=== PATIENT | male | born 1940 | race Caucasian/White ===

== ENCOUNTER 2019-11-23 05:26 | Emergency (ER) | payer MEDICARE, OTHER, SELFPAY ==
[2019-11-23 05:31] VITALS: BP 190/103; PULSE 75; RESP 28; TEMP 37; O2SAT 92; BMI 38.3
--- NOTE | 2019-11-23 05:32 | XR_ITS ---
WS: [id number] XR chest 1V portable [id number] REASON FOR EXAM: sob FINDINGS: The chest is unchanged compared to previous examination of 01/29/2019. There is been previous coronary artery bypass surgery. There are chronic interstitial changes in both lung bases. No acute pulmonary parenchymal pleural abn ormality is noted. Incidentally noted is narrowing of the humeral acromial space in the right shoulder which likely is i ndicative of rotator cuff pathology. XR/XR chest 1V portable [id number] IMPRESSION: No acute chest finding.
--- NOTE | 2019-11-23 05:33 | ECG_ITS ---
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 Measurements Intervals [place]bler Rate: 71 P: 56 NJ: 214 QRS: 61 QRSD: 162 T: 27 QT: 391 QTc: 427 Interpretive Statements SINUS RHYTHM WITH FIRST DEGREE AV BLOCK INDETERMINATE AXIS RIGHT BUNDLE BRANCH BLOCK [120+ ms QRS DURATION, UPRIGHT V1, 40+ ms S IN I/aVL/V4/V5/V6] Compared to ECG 05/11/2017 13:12:12 First degree AV block now present Indeterminate axis now present Right bundle-branch block now present Incomplete right bundle-branch block no longer present Electronically Signed On 11-23-2019 20:53:08 CDT by Lindy Tate M.D. [id number]
--- NOTE | 2019-11-23 05:38 | ED_ITS ---
Documented by User: Tyson Ortiz MD 11/24/19 11:06 HPI - SOB/Dyspnea General: Chief Complaint: Shortness of Breath/Dyspnea Stated Complaint: sob, trouble breathing Time Seen by Provider: 11/23/19 05:40 Source: patient Mode of arrival: ambulatory Limitations: no limitations History of Present Illness: HPI Narrative: 79-year-old male states he has a h istory of COPD states he had increased wheezing over the last week with getting much worse overnight. States that this morning he is having shortness of breath with wheezing. He was started albuterol she states had minimal improvement. He denies any fever. He has had a slight cough. He denies any chest pain. MD elicited complaint: shortness of breath Pertinent past history: COPD Onset (ago): day(s) Associated symptoms: Deny abdominal pain, chest pain, fever(s), nausea or vomiting Review of Systems Const: Denies: fever(s), chills, body aches or change in appetite Eyes: Denies: blurry vision or eye discomfort ENMT: Denies: throat pain or dental pain Card: Denies: chest pain Resp: Reports: dyspnea and wheezing GI: Denies: abdominal pain, nausea, vomiting or diarrhea : Denies: dysuria Musc: Denies: neck pain or back pain Skin/Breast: Denies: rash Neuro: Denies: headache(s) Psych: Denies: depression Reece/Lymph: Denies: easy bruising All/Imm: Denies: urticaria PFSH ED PFSH: Medical History ASHD (arteriosclerotic heart disease) Patient is known to have coronary artery disease and coronary artery bypass surgery. Asthma Atrial fibrillation Patient is known to have easy bruising and bleeding. So he is not able to take the oral anticoagulation. He has been taking the aspirin. Carpal tunnel syndrome COPD (chronic obstructive pulmonary disease) Dermatitis Hyperlipidemia Hypertension Surgical History H/O hernia repair History of removal of cyst Hx of CABG Hx of tonsillectomy Family History Other CAD (coronary artery disease) Cancer Social History Smoking and tobacco status: never smoked Alcohol intake: never Physical Exam Const: COMMON NORMALS: no acute distress, patient oriented x3 and healthy appearing HENMT: COMMON NORMALS: normocephalic and atraumatic HEAD & SCALP: normocephalic and atraumatic Eye: COMMON NORMALS: Equal, round and reactive pupils present and EOMs intact bilaterally PUPIL: Yes Equal, round and reactive pupils present Neck/C-Spine: COMMON NORMALS: full ROM and supple Chest: COMMONS NORMALS: normal inspection of the chest and normal palpation of entire chest wall Resp: COMMON NORMALS: normal respiratory effort, No retractions and No use of accessory muscles AUSCULTATION: wheezes Cardio: COMMON NORMALS: regular rate, regular rhythm and No murmurs present (Cardio) RATE: regular rate RHYTHM: regular rhythm GI: COMMON NORMALS: Normal to inspection, nondistended, normoactive bowel sounds present, Soft to palpation, non-tender and no masses PALPATION: Yes Soft to palpation Extremity: COMMON NORMALS: normal to inspection and full ROM Neuro: COMMON NORMALS: patient oriented x3, moves all extremities and no focal motor deficits Psych: COMMON NORMALS: mental status grossly normal, Normal thought process present and cooperative THOUGHT PROCESS: Normal thought process present Skin: COMMON NORMALS: no rashes or lesions noted and no wounds GENERAL SKIN EXAM: no rashes or lesions noted Course Vital Signs: Vital signs: Vital Signs Temperature 98.6 F 11/23/19 05:31 Pulse Rate 67 11/23/19 06:48 Respiratory Rate 18 11/23/19 06:19 Blood Pressure 131/75 11/23/19 06:48 Pulse Oximetry 94 11/23/19 06:48 MDM - SOB/Dyspnea Lab Data: Labs: Lab Results 11/23/19 11/23/19 11/23/19 Range/Units 05:45 05:45 06:15 WBC 9.0 (4.0-10.0) 10^3/ uL RBC 4.63 (4.1-5.3) 10^6/u L Hgb 14.8 (11.7-16.6) g/dL Hct 44.1 (42.0-52.0) % MCV 95.2 H (80-94) fL MCH 32.0 (28.0-34.0) pg MCHC 33.6 (30.0-36.0) g/dL RDW 13.0 (12.1-15.1) % Plt Count 215 (130-400) 10^3/c mm MPV 9.8 (7.4-10.4) fL Neut % (Auto) 59.6 % Lymph % (Auto) 24.7 % Brooks % (Auto) 8.4 % Eos % (Auto) 6.4 % Baso % (Auto) 0.7 % Neut # (Auto) 5.38 (1.8-7.7) 10^3/u L Lymph # (Auto) 2.2 (0.8-4.8) 10^3/u L Brooks # (Auto) 0.8 (0.2-0.9) 10^3/u L Eos # (Auto) 0.6 (0.0-0.8) 10^3/u L Baso # (Auto) 0.1 (0.0-0.1) 10^3/u L Nucleated RBC % (a uto) 0 % Nucleated RBCs # 0.0 /100WBC Specimen Type [facility] Sample Site Radial, right ABG pH 7.42 (7.35-7.45) ABG pCO2 40.4 (35-45) mmHg ABG pO2 554.0 H (80.0-100.0) mmH g ABG HCO3 26.1 H (22-26) mmol/L ABG O2 Saturation 99.4 ABG Base Excess 1.5 (-2.0-2.0) mmol/ L Jony Test Pos A-a O2 Gradient 4.7 L (5-10) mmHg Hematocrit 44.4 (42-52) % Hgb O2 Saturation 99.1 (95-100) % Carboxyhemoglobin 0.5 (0.4-20.1) %THgb Methemoglobin < 0.0 L (0.4-1.5) % Total Hemoglobin 10.6 L (14-18) g/dL Ionized Calcium 1.2 (1.1-1.4) mmol/L O2 Delivery Device None Physical Security Engineer ID Anonymous Sodium 136 77.0 L (136-145) mmol/L Potassium 4.2 7.8 H (3.5-5.1) mmol/L Chloride 98 (98-107) mmol/L Carbon Dioxide 25 (22-29) mmol/L Anion Gap 17.2 (5-19) BUN 7 L (8-23) mg/dL Creatinine 0.9 (0.7-1.2) mg/dL GFR Calculation Not Reportable Glucose 132 H < 0.0 L (65-115) mg/dL Calculated Osmolal ity 282 L (285-295) mOsm/k g Calcium 9.9 (8.5-10.5) mg/dL Total Bilirubin 0.3 (0.15-1.2) mg/dL AST 25 (0-40) U/L ALT 19 (0-41) U/L Alkaline Phosphata se 140 H (40-130) IU/L NT-Pro-B Natriuret Pep 222 (0-450) pg/mL Total Protein 7.6 (6.6-8.7) g/dL Albumin 4.3 (3.5-5.2) g/dL Globulin 3.3 (1.3-4.6) g/dL Discharge Plan Discharge Patient Disposition: Home Clinical Impression: Acute exacerbation of chronic obstructive airways disease Condition: Stable Prescriptions: New Medrol (Vinay) 4 mg tablets,dose pack See Rx Instructions .ROUTE .COMPLEX Qty: 21 RF: 0 ipratropium-albuterol 0.5 mg-3 mg(2.5 mg base)/3 mL solution for nebulization 3 ml INHALATION Q6H Qty: 180 RF: 0 Held levalbuterol HCl 1.25 mg/3 mL solution for nebulization 1.25 mg INHALATION Q4H PRNRF: 0 Hold Instructions: Resume on 11/30/19. No Action Brovana 15 mcg/2 mL solution for nebulization 2 ml INHALATION BID RF: 0 budesonide 0.25 mg/2 mL suspension for nebulization 2 ml INHALATION BID RF: 0 levothyroxine 75 mcg tablet 75 mcg PO DAILY RF: 0 montelukast [Singulair] 10 mg tablet 10 mg PO DAILY RF: 0 alprazolam 0.5 mg tablet 1 mg PO DAILY RF: 0 multivitamin Tablet 1 tab PO DAILY RF: 0 saw palmetto fruit 450 mg capsule 450 mg PO BID RF: 0 aspirin 325 mg tablet,delayed release (DR/EC) 325 mg PO DAILY RF: 0 atorvastatin 40 mg tablet 40 mg PO DAILY RF: 0 loratadine 10 mg tablet 10 mg PO DAILY RF: 0 omeprazole 20 mg tablet,delayed release (DR/EC) 20 mg PO BID RF: 0 venlafaxine 150 mg tablet extended release 24hr 150 mg PO DAILY RF: 0 furosemide 40 mg tablet 40 mg PO DAILY RF: 0 metoprolol tartrate 50 mg tablet 50 mg PO BID Qty: 180 RF: 3 nitroglycerin [Nitrostat] 0.4 mg tablet, sublingual 0.4 mg SUBLINGUAL Q5M PRN (Reason: chest pain) Qty: 30 RF: 3 Discharge Orders: Discharge Order (Routine); Ordered 11/23/19 Ordered By: Maulik De Dios Referrals: Alix Romero MD [Primary Care Provider] - Discharge Diet: Usual diet Discharge Activity: Increase activity as tolerated Activity Restrictions/Additional Instructions: Follow up with your primary care doctor within the next week. Discharge Date/Time: 11/23/19 06:48 Sign Out Sign Out Data: Patient Sign Out occurred on 11/23/19 at 05:56. Patient's care was discussed, and care was transferred from to Maulik De Dios DO. Coding Level of Care Code ED Corporate Investigator for Chg Fwd Exam Comprehensive Documented by User: Maulik De Dios DO 11/23/19 07:36 HPI - SOB/Dyspnea General: Chief Complaint: Shortness of Breath/Dyspnea Stated Complaint: sob, trouble breathing Time Seen by Provider: 11/23/19 05:40 History of Present Illness: HPI Narrative: 79-year-old male presents emergency room with complaints of shortness of breath and cough. He has had some relief from his nebulizer she denies fever denies any diarrhea is not been contact with anyone with [place] that he is aware of. He maintains he is been self quarantining since the pandemic began. He denies any body aches or anosmia. MD elicited complaint: shortness of breath and cough Pertinent past history: COPD Onset (ago): day(s) Context: occurred during exertion Timing: intermittent Severity: moderate Exacerbating factors: exertion and coughing Relieving factors: rest and bronchodilators Known history of: COPD Associated symptoms: Deny abdominal pain, chest congestion, chest pain, cough, diaphoresis, dizziness, extremity pain, fever(s), hemoptysis, lightheadedness, myalgias, nausea, orthopnea, palpitations, paresthesias, polydipsia, polyuria, rash, sense of impending doom, syncope or vomiting Treatment prior to arrival: bronchodilator Review of Systems Const: Denies: fever(s) or diaphoresis ENMT: Denies: throat pain, ear or mastoid pain, nasal discharge or nasal congestion Card: Denies: chest pain, palpitations, lightheadedness, syncope or orthopnea Resp: Denies: hemoptysis or chest congestion GI: Denies: abdominal pain, nausea or vomiting : Denies: flank pain, dysuria, urinary frequency or urinary urgency Musc: Denies: extremity pain Skin/Breast: Denies: rash or pruritus Neuro: Denies: dizziness Endo: Denies: polyuria or polydipsia PFSH ED PFSH: Medical History ASHD (arteriosclerotic heart disease) Patient is known to have coronary artery disease and coronary artery bypass surgery. Asthma Atrial fibrillation Patient is known to have easy bruising and bleeding. So he is not able to take the oral anticoagulation. He has been taking the aspirin. Carpal tunnel syndrome COPD (chronic obstructive pulmonary disease) Dermatitis Hyperlipidemia Hypertension Surgical History H/O hernia repair History of removal of cyst Hx of CABG Hx of tonsillectomy Family History Other CAD (coronary artery disease) Cancer Social History Smoking and tobacco status: never smoked Alcohol intake: never Physical Exam Const: COMMON NORMALS: no acute distress GENERAL APPEARANCE: cooperative and comfortable ORIENTATION/CONSCIOUSNESS: Yes awake, Yes oriented to person, Yes oriented to place and Yes oriented to time HENMT: COMMON NORMALS: normocephalic, atraumatic and hearing grossly normal bilaterally HEAD & SCALP: normocephalic and atraumatic Neck/C-Spine: COMMON NORMALS: no JVD Resp: COMMON NORMALS: normal respiratory effort, No retractions, No use of accessory muscles and clear to auscultation bilaterally AUSCULTATION: clear to auscultation bilaterally Cardio: COMMON NORMALS: no JVD, regular rate, regular rhythm and No murmurs present (Cardio) RATE: regular rate RHYTHM: regular rhythm GI: COMMON NORMALS: Soft to palpation and No hepatosplenomegaly present AUSCULTATION: Yes normoactive bowel sounds PALPATION: Yes Soft to palpation, No Tenderness to palpation present (GI), No Guarding due to palpation present (GI) and Yes No hepatosplenomegaly present Extremity: COMMON NORMALS: normal to inspection, capillary refill normal, no clubbing, cyanosis or edema, no calf tenderness and no pedal edema Neuro: SENSORIUM/ORIENTATION: Yes oriented to person, Yes oriented to place and Yes oriented to time Skin: COMMON NORMALS: no rashes or lesions noted GENERAL SKIN EXAM: no rashes or lesions noted Course Vital Signs: Vital signs: Vital Signs Temperature 98.6 F 11/23/19 05:31 Pulse Rate 67 11/23/19 06:48 Respiratory Rate 18 11/23/19 06:19 Blood Pressure 131/75 11/23/19 06:48 Pulse Oximetry 94 11/23/19 06:48 MDM - SOB/Dyspnea MDM Narrative: Medical decision making narrative: Patient has improved significantly we will go ahead and discharge him home change him to the [facility] at home also add Medrol Dosepak. Did not start him on any antibiotics due to the normal chest x-ray if he has any worsening or change return to the emergency room strongly encouraged him to follow-up with his primary care doctor within the next week. Lab Data: Labs: Lab Results 11/23/19 11/23/19 11/23/19 Range/Units 05:45 05:45 06:15 WBC 9.0 (4.0-10.0) 10^3/ uL RBC 4.63 (4.1-5.3) 10^6/u L Hgb 14.8 (11.7-16.6) g/dL Hct 44.1 (42.0-52.0) % MCV 95.2 H (80-94) fL MCH 32.0 (28.0-34.0) pg MCHC 33.6 (30.0-36.0) g/dL RDW 13.0 (12.1-15.1) % Plt Count 215 (130-400) 10^3/c mm MPV 9.8 (7.4-10.4) fL Neut % (Auto) 59.6 % Lymph % (Auto) 24.7 % Brooks % (Auto) 8.4 % Eos % (Auto) 6.4 % Baso % (Auto) 0.7 % Neut # (Auto) 5.38 (1.8-7.7) 10^3/u L Lymph # (Auto) 2.2 (0.8-4.8) 10^3/u L Brooks # (Auto) 0.8 (0.2-0.9) 10^3/u L Eos # (Auto) 0.6 (0.0-0.8) 10^3/u L Baso # (Auto) 0.1 (0.0-0.1) 10^3/u L Nucleated RBC % (a uto) 0 % Nucleated RBCs # 0.0 /100WBC Specimen Type [facility] Sample Site Radial, right ABG pH 7.42 (7.35-7.45) ABG pCO2 40.4 (35-45) mmHg ABG pO2 554.0 H (80.0-100.0) mmH g ABG HCO3 26.1 H (22-26) mmol/L ABG O2 Saturation 99.4 ABG Base Excess 1.5 (-2.0-2.0) mmol/ L Jony Test Pos A-a O2 Gradient 4.7 L (5-10) mmHg Hematocrit 44.4 (42-52) % Hgb O2 Saturation 99.1 (95-100) % Carboxyhemoglobin 0.5 (0.4-20.1) %THgb Methemoglobin < 0.0 L (0.4-1.5) % Total Hemoglobin 10.6 L (14-18) g/dL Ionized Calcium 1.2 (1.1-1.4) mmol/L O2 Delivery Device None Physical Security Engineer ID Anonymous Sodium 136 77.0 L (136-145) mmol/L Potassium 4.2 7.8 H (3.5-5.1) mmol/L Chloride 98 (98-107) mmol/L Carbon Dioxide 25 (22-29) mmol/L Anion Gap 17.2 (5-19) BUN 7 L (8-23) mg/dL Creatinine 0.9 (0.7-1.2) mg/dL GFR Calculation Not Reportable Glucose 132 H < 0.0 L (65-115) mg/dL Calculated Osmolal ity 282 L (285-295) mOsm/k g Calcium 9.9 (8.5-10.5) mg/dL Total Bilirubin 0.3 (0.15-1.2) mg/dL AST 25 (0-40) U/L ALT 19 (0-41) U/L Alkaline Phosphata se 140 H (40-130) IU/L NT-Pro-B Natriuret Pep 222 (0-450) pg/mL Total Protein 7.6 (6.6-8.7) g/dL Albumin 4.3 (3.5-5.2) g/dL Globulin 3.3 (1.3-4.6) g/dL Discharge Plan Discharge Patient Disposition: Home Clinical Impression: Acute exacerbation of chronic obstructive airways disease Condition: Stable Prescriptions: New Medrol (Vinay) 4 mg tablets,dose pack See Rx Instructions .ROUTE .COMPLEX Qty: 21 RF: 0 ipratropium-albuterol 0.5 mg-3 mg(2.5 mg base)/3 mL solution for nebulization 3 ml INHALATION Q6H Qty: 180 RF: 0 Held levalbuterol HCl 1.25 mg/3 mL solution for nebulization 1.25 mg INHALATION Q4H PRNRF: 0 Hold Instructions: Resume on 11/30/19. No Action Brovana 15 mcg/2 mL solution for nebulization 2 ml INHALATION BID RF: 0 budesonide 0.25 mg/2 mL suspension for nebulization 2 ml INHALATION BID RF: 0 levothyroxine 75 mcg tablet 75 mcg PO DAILY RF: 0 montelukast [Singulair] 10 mg tablet 10 mg PO DAILY RF: 0 alprazolam 0.5 mg tablet 1 mg PO DAILY RF: 0 multivitamin Tablet 1 tab PO DAILY RF: 0 saw palmetto fruit 450 mg capsule 450 mg PO BID RF: 0 aspirin 325 mg tablet,delayed release (DR/EC) 325 mg PO DAILY RF: 0 atorvastatin 40 mg tablet 40 mg PO DAILY RF: 0 loratadine 10 mg tablet 10 mg PO DAILY RF: 0 omeprazole 20 mg tablet,delayed release (DR/EC) 20 mg PO BID RF: 0 venlafaxine 150 mg tablet extended release 24hr 150 mg PO DAILY RF: 0 furosemide 40 mg tablet 40 mg PO DAILY RF: 0 metoprolol tartrate 50 mg tablet 50 mg PO BID Qty: 180 RF: 3 nitroglycerin [Nitrostat] 0.4 mg tablet, sublingual 0.4 mg SUBLINGUAL Q5M PRN (Reason: chest pain) Qty: 30 RF: 3 Discharge Orders: Discharge Order (Routine); Ordered 11/23/19 Ordered By: Maulik De Dios Referrals: Alix Romero MD [Primary Care Provider] - Discharge Diet: Usual diet Discharge Activity: Increase activity as tolerated Activity Restrictions/Additional Instructions: Follow up with your primary care doctor within the next week. Discharge Date/Time: 11/23/19 06:48 Sign Out Sign Out Data: Patient Sign Out occurred on 11/23/19 at 05:56. Patient's care was discussed, and care was transferred from to Maulik De Dios DO. Coding Level of Care Code ED Corporate Investigator for Alfredo Fwd Exam Comprehensive
[2019-11-23 05:43] VITALS: BP 156/82; PULSE 71; RESP 18; O2SAT 95
[2019-11-23 05:49] LABS: Basophils # 0.1 10^3/uL (0.0-0.1); Basophils % 0.7 %; Eosinophils # 0.6 10^3/uL (0.0-0.8); Eosinophils % 6.4 %; Hematocrit 44.1 % (42.0-52.0); Hemoglobin 14.8 g/dL (11.7-16.6); Lymphocytes # 2.2 10^3/uL (0.8-4.8); Lymphocytes % 24.7 %; Mean Corpuscular HGB Conc 33.6 g/dL (30.0-36.0); Mean Corpuscular Volume 95.2 fL (80-94); Mean Platelet Volume 9.8 fL (7.4-10.4); Monocytes # 0.8 10^3/uL (0.2-0.9); Monocytes % 8.4 %; Neutrophils # 5.38 10^3/uL (1.8-7.7); Neutrophils % 59.6 %; Nucleated Red Blood Cells % 0 %; Platelet Count 215 10^3/cmm (130-400); Red Blood Count 4.63 10^6/uL (4.1-5.3)
[2019-11-23] MEDS: ipratropium-albuterol 3 mL Neb INHALATION (05:52)
[2019-11-23 05:53] VITALS: PULSE 72; RESP 18; O2SAT 93
[2019-11-23 05:57] VITALS: PULSE 71
[2019-11-23 06:13] LABS: Alanine Aminotransferase 19 U/L (0-41); Albumin Level 4.3 g/dL (3.5-5.2); Alkaline Phosphatase 140 IU/L (40-130); Anion Gap 17.2 (5-19); Aspartate Amino Transferase 25 U/L (0-40); Blood Urea Nitrogen 7 mg/dL (8-23); Calcium 9.9 mg/dL (8.5-10.5); Carbon Dioxide 25 mmol/L (22-29); Chloride 98 mmol/L (98-107); Globulin 3.3 g/dL (1.3-4.6); Glucose 132 mg/dL (65-115); NT Pro B Type Natriuretic Pept 222 pg/mL (0-450); Osmolality Calculated 282 mOsm/kg (285-295); Potassium 4.2 mmol/L (3.5-5.1); Sodium 136 mmol/L (136-145); Total Bilirubin 0.3 mg/dL (0.15-1.2); Total Protein 7.6 g/dL (6.6-8.7)
[2019-11-23 06:19] VITALS: BP 134/76; PULSE 68; RESP 18; O2SAT 92
[2019-11-23 06:24] LABS: ABG PCO2 40.4 mmHg (35-45); ABG PH Result 7.42 (7.35-7.45); Alveolar-Arterial Oxygen Gradi 4.7 mmHg (5-10); Arterial Blood Gas Hematocrit 44.4 % (42-52); Base Excess ABG 1.5 mmol/L (-2.0-2.0); Blood Gas Allen Test Pos; Blood Gas Sample Site Radial, right; HCO3 ABG 26.1 mmol/L (22-26); Ionized Calcium Level - ABG 1.2 mmol/L (1.1-1.4)
[2019-11-23 06:48] VITALS: BP 131/75; PULSE 67; O2SAT 94
[2019-11-23 13:53] LABS: Blood Gas Operator Identificat Anonymous; Blood Gas Sample Type CalVer; HGB O2 Sat 99.1 % (95-100); Methemoglobin < 0.0 % (0.4-1.5); Oxygen Saturation ABG 99.4; Potassium Level - ABG 7.8 mmol/L (3.5-5.0); Total Hemoglobin 10.6 g/dL (14-18)
[2019-11-23 13:55] LABS: Glucose Level-ABG < 0.0 mg/dL (70-115)
[2019-11-23 14:04] LABS: Carboxyhemoglobin 0.5 %THgb (0.4-20.1)
== END 2019-11-23 06:48 | disposition home or self-care (01) ==
PROVIDERS: Emergency Medicine; Emergency Provider Family Medicine; PCP Family Medicine
DX: J44.1 Chronic obstructive pulmonary disease with (acute) exacerbation (principal); Z79.82 Long term (current) use of aspirin; I48.91 Unspecified atrial fibrillation; E78.5 Hyperlipidemia, unspecified; I10 Essential (primary) hypertension; Z95.1 Presence of aortocoronary bypass graft
CPT/HCPCS: 12345; 36600; 71045; 80051; 80053; 82810; 83880; 83986; 85025; 93005; 94640; 96374; 99283; 99284; J2930; J7611

== ENCOUNTER 2019-12-13 14:33 | Emergency (ER) | payer MEDICARE, OTHER, SELFPAY ==
[2019-12-13] VITALS (12 sets, daily range): BP systolic 130–207; BP diastolic 59–104; PULSE 86–101; RESP 19–25; TEMP 36.8; O2SAT 87–99; BMI 38.3
--- NOTE | 2019-12-13 14:49 | XR_ITS ---
WS: [id number] Exam: XR chest 1V portable [id number] Date/Time of Exam: 12/13/2019 3:20 PM Reason For Exam: dyspnea/cough Findings: Comparison 11/23/2019. The lungs are clear and fully expanded. Chronic interstitial changes. Normal cardiomediastinal struct ures. Signs of median sternotomy. High riding right humeral head may indicate long-standing tear of t he rotator cuff. XR/XR chest 1V portable [id number] IMPRESSION: 1. Chronic pulmonary changes. No acute process identified.
[2019-12-13 14:55] LABS: ABG PCO2 43.8 mmHg (35-45); ABG PH Result 7.38 (7.35-7.45); Arterial Blood Gas Hematocrit 46.7 % (42-52); Base Excess ABG 0.1 mmol/L (-2.0-2.0); Blood Gas Allen Test Pos; Blood Gas Operator Identificat GD; Blood Gas Sample Site Radial, left; Blood Gas Sample Type Arterial; HCO3 ABG 25.7 mmol/L (22-26); Oxygen Device NC; PO2 ABG 78.9 mmHg (80.0-100.0)
[2019-12-13 14:57] LABS: Basophils % 0.5 %; Eosinophils # 0.8 10^3/uL (0.0-0.8); Eosinophils % 9.6 %; Hematocrit 44.4 % (42.0-52.0); Lymphocytes # 2.1 10^3/uL (0.8-4.8); Lymphocytes % 25.9 %; Mean Corpuscular HGB Conc 33.8 g/dL (30.0-36.0); Mean Corpuscular Hemoglobin 32.2 pg (28.0-34.0); Mean Corpuscular Volume 95.3 fL (80-94); Mean Platelet Volume 10.6 fL (7.4-10.4); Monocytes # 0.7 10^3/uL (0.2-0.9); Monocytes % 8.4 %; Neutrophils % 55.5 %; Nucleated Red Blood Cells % 0 %; Platelet Count 207 10^3/cmm (130-400); Red Blood Count 4.66 10^6/uL (4.1-5.3); Red Cell Distribution Width 12.9 % (12.1-15.1); White Blood Count 8.1 10^3/uL (4.0-10.0)
--- NOTE | 2019-12-13 15:03 | ED_ITS ---
HPI - SOB/Dyspnea General: Chief Complaint: Shortness of Breath/Dyspnea Stated Complaint: RESP DISTRESS, COPD Time Seen by Provider: 12/13/19 14:38 History of Present Illness: HPI Narrative: 79-year-old male presents emergency room via EMS complaining of severe shortness of breath and wheezing. He has had this for the last several days progressively worsening. He denies any fever sweats chills nausea vomiting or diarrhea he is not had any myalgias or flulike symptoms. He ran out of his bronchodilators several days ago. In route he was placed on BiPAP for comfort and also given Solu-Medrol. On arrival here on 2 to 3 L per nasal cannula he is able to maintain sats in the upper 90s. MD elicited complaint: shortness of breath and cough Pertinent past history: asthma Onset (ago): hour(s) Severity: moderate Exacerbating factors: exertion and coughing Relieving factors: oxygen and other (cpap) Associated symptoms: Reports chest congestion and cough; Deny abdominal pain, chest pain, diaphoresis, dizziness, extremity pain, fever(s), hemoptysis, lightheadedness, myalgias, nausea, orthopnea, palpitations, paresthesias, polydipsia, polyuria, rash, sense of impending doom, syncope or vomiting Treatment prior to arrival: oxygen and other (BiPAP) Review of Systems Const: Denies: fever(s) or diaphoresis ENMT: Denies: throat pain, ear or mastoid pain, nasal discharge or nasal congestion Card: Denies: chest pain, palpitations, lightheadedness, syncope or orthopnea Resp: Reports: chest congestion; Denies: hemoptysis GI: Denies: abdominal pain, nausea or vomiting : Denies: flank pain, dysuria, urinary frequency or urinary urgency Musc: Denies: extremity pain Skin/Breast: Denies: rash or pruritus Neuro: Denies: dizziness Endo: Denies: polyuria or polydipsia PFSH ED PFSH: Medical History ASHD (arteriosclerotic heart disease) Patient is known to have coronary artery disease and coronary artery bypass surgery. Asthma Atrial fibrillation Patient is known to have easy bruising and bleeding. So he is not able to take the oral anticoagulation. He has been taking the aspirin. Carpal tunnel syndrome COPD (chronic obstructive pulmonary disease) Dermatitis Hyperlipidemia Hypertension Surgical History H/O hernia repair History of removal of cyst Hx of CABG Hx of tonsillectomy Family History Other CAD (coronary artery disease) Cancer Social History Smoking and tobacco status: never smoked Alcohol intake: never Physical Exam Const: COMMON NORMALS: no acute distress GENERAL APPEARANCE: cooperative and comfortable ORIENTATION/CONSCIOUSNESS: Yes awake, Yes oriented to person, Yes oriented to place and Yes oriented to time HENMT: COMMON NORMALS: normocephalic, atraumatic and hearing grossly normal bilaterally HEAD & SCALP: normocephalic and atraumatic Eye: COMMON NORMALS: Equal, round and reactive pupils present, EOMs intact bilaterally, conjunctivae normal and no scleral icterus CONJUNCTIVA: Yes conjunctivae normal PUPIL: Yes Equal, round and reactive pupils present Neck/C-Spine: COMMON NORMALS: no JVD Resp: AUSCULTATION: wheezes Cardio: COMMON NORMALS: no JVD, regular rate, regular rhythm and No murmurs present (Cardio) RATE: regular rate RHYTHM: regular rhythm GI: COMMON NORMALS: Soft to palpation and No hepatosplenomegaly present AUSCULTATION: Yes normoactive bowel sounds PALPATION: Yes Soft to palpation, No Tenderness to palpation present (GI), No Guarding due to palpation present (GI) and Yes No hepatosplenomegaly present Extremity: COMMON NORMALS: normal to inspection, capillary refill normal, no clubbing, cyanosis or edema, no calf tenderness and no pedal edema Neuro: SENSORIUM/ORIENTATION: Yes oriented to person, Yes oriented to place and Yes oriented to time Skin: COMMON NORMALS: no rashes or lesions noted GENERAL SKIN EXAM: no rashes or lesions noted Course Vital Signs: Vital signs: Vital Signs Temperature 98.3 F 12/13/19 14:37 Pulse Rate 101 H 12/13/19 20:53 Respiratory Rate 19 H 12/13/19 19:27 Blood Pressure 167/88 12/13/19 20:53 Pulse Oximetry 95 12/13/19 20:53 MDM - SOB/Dyspnea MDM Narrative: Medical decision making narrative: Patient improved with albuterol. We will put him on a Medrol Dosepak albuterol screen for home O2 follow-up tomorrow with his primary care doctor Lab Data: Labs: Lab Results 12/13/19 12/13/19 12/13/19 Range/Units 14:25 14:25 14:25 WBC 8.1 (4.0-10.0) 10^3/ uL RBC 4.66 (4.1-5.3) 10^6/u L Hgb 15.0 (11.7-16.6) g/dL Hct 44.4 (42.0-52.0) % MCV 95.3 H (80-94) fL MCH 32.2 (28.0-34.0) pg MCHC 33.8 (30.0-36.0) g/dL RDW 12.9 (12.1-15.1) % Plt Count 207 (130-400) 10^3/c mm MPV 10.6 H (7.4-10.4) fL Neut % (Auto) 55.5 % Lymph % (Auto) 25.9 % [place] % (Auto) 8.4 % Eos % (Auto) 9.6 % Baso % (Auto) 0.5 % Neut # (Auto) 4.50 (1.8-7.7) 10^3/u L Lymph # (Auto) 2.1 (0.8-4.8) 10^3/u L [place] # (Auto) 0.7 (0.2-0.9) 10^3/u L Eos # (Auto) 0.8 (0.0-0.8) 10^3/u L Baso # (Auto) 0.0 (0.0-0.1) 10^3/u L Nucleated RBC % (a uto) 0 % Nucleated RBCs # 0.0 /100WBC Fibrinogen 616 H (174-498) mg/dL D-Dimer 0.37 (0-0.59) ug/mIFE U Specimen Type Sample Site ABG pH (7.35-7.45) ABG pCO2 (35-45) mmHg ABG pO2 (80.0-100.0) mmH g ABG HCO3 (22-26) mmol/L ABG Base Excess (-2.0-2.0) mmol/ L Jony Test Hematocrit (42-52) % O2 Delivery Device O2 Liters/Min % FiO2 % Director Of Strategic Alliances ID Sodium 136 (136-145) mmol/L Potassium 4.2 (3.5-5.1) mmol/L Chloride 97 L (98-107) mmol/L Carbon Dioxide 27 (22-29) mmol/L Anion Gap 16.2 (5-19) BUN 6 L (8-23) mg/dL Creatinine 0.8 (0.7-1.2) mg/dL GFR Calculation Not Reportable Glucose 101 (65-115) mg/dL Calculated Osmolal ity 280 L (285-295) mOsm/k g Calcium 9.3 (8.5-10.5) mg/dL Ferritin 155 (30-400) ng/mL Total Bilirubin 0.3 (0.15-1.2) mg/dL AST 23 (0-40) U/L ALT 23 (0-41) U/L Alkaline Phosphata se 136 H (40-130) IU/L C-Reactive Protein 6.9 H (0.0-4.9) mg/L Total Protein 7.1 (6.6-8.7) g/dL Albumin 4.4 (3.5-5.2) g/dL Globulin 2.7 (1.3-4.6) g/dL Procalcitonin 0.05 (0-0.5) ng/mL Urine Color (Yellow) Urine Appearance (CLEAR) Urine pH (5-7) Ur Specific Gravit y (1.005-1.030) Urine Protein (Negative) Urine Glucose (UA) (Normal) Urine Ketones (Negative) Urine Blood (Negative) Urine Nitrate (Negative) Urine Bilirubin (Negative) Urine Urobilinogen (Negative) mg/dL Ur Leukocyte Cherry ase (Negative) SARS-CoV-2 Ag (Rap id) (Negative) 12/13/19 12/13/19 12/13/19 Range/Units 14:35 15:24 15:35 WBC (4.0-10.0) 10^3/ uL RBC (4.1-5.3) 10^6/u L Hgb (11.7-16.6) g/dL Hct (42.0-52.0) % MCV (80-94) fL MCH (28.0-34.0) pg MCHC (30.0-36.0) g/dL RDW (12.1-15.1) % Plt Count (130-400) 10^3/c mm MPV (7.4-10.4) fL Neut % (Auto) % Lymph % (Auto) % [place] % (Auto) % Eos % (Auto) % Baso % (Auto) % Neut # (Auto) (1.8-7.7) 10^3/u L Lymph # (Auto) (0.8-4.8) 10^3/u L [place] # (Auto) (0.2-0.9) 10^3/u L Eos # (Auto) (0.0-0.8) 10^3/u L Baso # (Auto) (0.0-0.1) 10^3/u L Nucleated RBC % (a uto) % Nucleated RBCs # /100WBC Fibrinogen (174-498) mg/dL D-Dimer (0-0.59) ug/mIFE U Specimen Type Arterial Sample Site Radial, left ABG pH 7.38 (7.35-7.45) ABG pCO2 43.8 (35-45) mmHg ABG pO2 78.9 L (80.0-100.0) mmH g ABG HCO3 25.7 (22-26) mmol/L ABG Base Excess 0.1 (-2.0-2.0) mmol/ L Jony Test Pos Hematocrit 46.7 (42-52) % O2 Delivery Device Nc O2 Liters/Min 2.0 % FiO2 28.0 % Director Of Strategic Alliances ID Gd Sodium (136-145) mmol/L Potassium (3.5-5.1) mmol/L Chloride (98-107) mmol/L Carbon Dioxide (22-29) mmol/L Anion Gap (5-19) BUN (8-23) mg/dL Creatinine (0.7-1.2) mg/dL GFR Calculation Glucose (65-115) mg/dL Calculated Osmolal ity (285-295) mOsm/k g Calcium (8.5-10.5) mg/dL Ferritin (30-400) ng/mL Total Bilirubin (0.15-1.2) mg/dL AST (0-40) U/L ALT (0-41) U/L Alkaline Phosphata se (40-130) IU/L C-Reactive Protein (0.0-4.9) mg/L Total Protein (6.6-8.7) g/dL Albumin (3.5-5.2) g/dL Globulin (1.3-4.6) g/dL Procalcitonin (0-0.5) ng/mL Urine Color Yellow (Yellow) Urine Appearance Clear (CLEAR) Urine pH 6 (5-7) Ur Specific Gravit y 1.015 (1.005-1.030) Urine Protein Neg (Negative) Urine Glucose (UA) Norm (Normal) Urine Ketones Negative (Negative) Urine Blood Neg (Negative) Urine Nitrate Negative (Negative) Urine Bilirubin Neg (Negative) Urine Urobilinogen Norm (Negative) mg/dL Ur Leukocyte [place] ase Negative (Negative) SARS-CoV-2 Ag (Rap id) Negative (Negative) Discharge Plan Discharge Patient Disposition: Home Clinical Impression: Acute exacerbation of chronic obstructive airways disease Condition: Stable Prescriptions: New Medrol (Vinay) 4 mg tablets,dose pack See Rx Instructions .ROUTE .COMPLEX Qty: 21 RF: 0 albuterol sulfate 90 mcg/actuation HFA aerosol inhaler 2 inh INHALATION Q4H PRN (Reason: shortness of breath or wheezing) Qty: 18 RF: 0 albuterol sulfate 2.5 mg /3 mL (0.083 %) solution for nebulization 2.5 mg INHALATION Q6H PRN (Reason: shortness of breath or wheezing) Qty: 90 RF: 0 No Action Brovana 15 mcg/2 mL solution for nebulization 2 ml INHALATION BID RF: 0 budesonide 0.25 mg/2 mL suspension for nebulization 2 ml INHALATION BID RF: 0 levothyroxine 75 mcg tablet 75 mcg PO DAILY RF: 0 montelukast [Singulair] 10 mg tablet 10 mg PO DAILY RF: 0 alprazolam 0.5 mg tablet 0.5 mg PO BID PRN (Reason: unknown) RF: 0 multivitamin Tablet 1 tab PO DAILY RF: 0 saw palmetto fruit 450 mg capsule 450 mg PO BID RF: 0 aspirin 325 mg tablet,delayed release (DR/EC) 325 mg PO DAILY RF: 0 atorvastatin 40 mg tablet 40 mg PO DAILY RF: 0 loratadine 10 mg tablet 10 mg PO DAILY RF: 0 omeprazole 20 mg tablet,delayed release (DR/EC) 40 mg PO DAILY RF: 0 venlafaxine 150 mg tablet extended release 24hr 150 mg PO DAILY RF: 0 furosemide 40 mg tablet 40 mg PO DAILY RF: 0 metoprolol tartrate 50 mg tablet 50 mg PO BID Qty: 180 RF: 3 nitroglycerin [Nitrostat] 0.4 mg tablet, sublingual 0.4 mg SUBLINGUAL Q5M PRN (Reason: chest pain) Qty: 30 RF: 3 ipratropium-albuterol 0.5 mg-3 mg(2.5 mg base)/3 mL solution for nebulization 3 ml INHALATION Q6H Qty: 180 RF: 0 venlafaxine 75 mg capsule,extended release 24hr 75 mg PO DAILY RF: 0 Discharge Orders: Discharge Order (Routine); Ordered 12/13/19 Ordered By: Maulik De Dios Referrals: Alix Romero MD [Primary Care Provider] - Discharge Date/Time: 12/13/19 20:55 Coding Level of Care Code ED Public Welfare Worker for Chg Fwd Exam Comprehensive
[2019-12-13] MEDS: terbutaline 1 mg/mL INJ 0.25 MG SUBCUT (15:16)
[2019-12-13] MEDS: LORazepam 2 mg/mL INJ 1 mL IVP (15:16)
[2019-12-13 15:21] LABS: Procalcitonin 0.05 ng/mL (0-0.5)
[2019-12-13 15:25] LABS: D Dimer 0.37 ug/mIFEU (0-0.59); Fibrinogen 616 mg/dL (174-498)
[2019-12-13 15:34] LABS: Alanine Aminotransferase 23 U/L (0-41); Albumin Level 4.4 g/dL (3.5-5.2); Alkaline Phosphatase 136 IU/L (40-130); Aspartate Amino Transferase 23 U/L (0-40); Blood Urea Nitrogen 6 mg/dL (8-23); C Reactive Protein 6.9 mg/L (0.0-4.9); Calcium 9.3 mg/dL (8.5-10.5); Carbon Dioxide 27 mmol/L (22-29); Chloride 97 mmol/L (98-107); Ferritin 155 ng/mL (30-400); Globulin 2.7 g/dL (1.3-4.6); Glucose 101 mg/dL (65-115); Osmolality Calculated 280 mOsm/kg (285-295); Sodium 136 mmol/L (136-145); Total Bilirubin 0.3 mg/dL (0.15-1.2); Total Protein 7.1 g/dL (6.6-8.7)
[2019-12-13 15:37] LABS: Anion Gap 16.2 (5-19); Potassium 4.2 mmol/L (3.5-5.1)
--- NOTE | 2019-12-13 15:40 | PC.NURSE ---
PT WAS ON ROOM AIR AT 88%. PT PLACED BACK ON NC AT 1.5L
[2019-12-13 15:48] LABS: SARS Covid-2 Antigen Negative (Negative)
[2019-12-13 15:52] LABS: Add Urine Microscopic? NO
[2019-12-13 15:57] LABS: Bilirubin Urine Neg (Negative); Blood Urine Neg (Negative); Glucose Urine UA Norm (Normal); Ketones Urine Negative (Negative); Leukocyte Esterase Urine Negative (Negative); Nitrate Urine Negative (Negative); Protein Urine Neg (Negative); Specific Gravity, Urine 1.015 (1.005-1.030); Urine Appearance Clear (CLEAR); Urine Color Yellow (Yellow); Urobilinogen Urine Norm (Negative); pH Urine 6 (5-7)
[2019-12-13] MEDS: ipratropium-albuterol 3 mL Neb INHALATION ×2 (16:05→17:22)
--- NOTE | 2019-12-13 16:12 | PC.NURSE ---
pt off of droplet precautions
--- NOTE | 2019-12-13 18:10 | PC.NURSE ---
RT at bedside to complete home O2 evaluation.
--- NOTE | 2019-12-13 19:14 | PC.NURSE ---
patient requested [facility] provide oxygen
--- NOTE | 2019-12-13 21:17 | PC.SOCIAL ---
Patient qualified for home oxygen. He chose [facility] as he already gets CPAP supplies from there. Called [facility] and spoke to Jasmyne, faxed information, she will have short haul driver over as soon as possible. Choice sheet signed and in chart, his son is here to provide ride home. Information faxed to Dr. Alix Romero's office as per Jasmyne they will need to get orders from her since she is the PCP.
== END 2019-12-13 20:55 | disposition home or self-care (01) ==
PROVIDERS: Emergency Provider Family Medicine; PCP Family Medicine
DX: J44.1 Chronic obstructive pulmonary disease with (acute) exacerbation (principal); Z79.82 Long term (current) use of aspirin; I48.91 Unspecified atrial fibrillation; E78.5 Hyperlipidemia, unspecified; I10 Essential (primary) hypertension; Z95.1 Presence of aortocoronary bypass graft
CPT/HCPCS: 12345; 36600; 71045; 80053; 81003; 82728; 82803; 84145; 85025; 85378; 85384; 86140; 87426; 94640; 96372; 96374; 96375; 99283; 99284; J2060; J3105

== ENCOUNTER 2020-01-04 08:00 | Emergency (ER) | payer MEDICARE, OTHER, SELFPAY ==
[2020-01-04 08:01] VITALS: BP 167/87; PULSE 73; RESP 20; TEMP 36.9; O2SAT 98; BMI 38.3
[2020-01-04 08:13] VITALS: O2SAT 98
--- NOTE | 2020-01-04 08:26 | XR_ITS ---
WS: [id number] Exam: XR chest 1V portable [id number] Date/Time of Exam: 01/04/2020 8:26 AM Reason For Exam: dyspnea Comparison 12/13/2019. The lungs are fully expanded and clear. Normal heart size. The mediastinum and bony thorax are unrema rkable. Signs of previous CABG surgery. XR/XR chest 1V portable [id number] IMPRESSION: 1. No acute cardiopulmonary finding.
--- NOTE | 2020-01-04 08:26 | ECG_ITS ---
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 Measurements Intervals [place] Rate: 68 P: 74 AR: 206 QRS: 6 QRSD: 149 T: 69 QT: 385 QTc: 412 Interpretive Statements SINUS RHYTHM INDETERMINATE AXIS RIGHT BUNDLE BRANCH BLOCK [120+ ms QRS DURATION, UPRIGHT V1, 40+ ms S IN I/aVL/V4/V5/V6] Compared to ECG 11/23/2019 05:40:42 First degree AV block no longer present Electronically Signed On 01-04-2020 21:43:46 LABORATORY ASST by Harmony Guerin M.D. [id number]
--- NOTE | 2020-01-04 08:49 | ED_ITS ---
HPI - SOB/Dyspnea General: Chief Complaint: Shortness of Breath/Dyspnea Stated Complaint: DIFF BREATHING Time Seen by Provider: 01/04/20 08:01 History of Present Illness: HPI Narrative: 71-year-old male presents emergency room complaining of shortness of breath. He has a history of COPD. Pt was seen in the ER with exacebetation of COPD approximately 3 wks. He was on steriods but feels it has worsened since he ran out of the steriods. He was referred to a chief airline radio operator, hua to be seen this AM but was not able to get to his car due to dyspnea. MD elicited complaint: shortness of breath and cough Pertinent past history: COPD Onset (ago): hour(s) Context: occurred during exertion Timing: intermittent Severity: mild Exacerbating factors: nothing Relieving factors: nothing Known history of: COPD Associated symptoms: Reports chest congestion and cough; Deny abdominal pain, chest pain, diaphoresis, dizziness, extremity pain, fever(s), hemoptysis, lightheadedness, myalgias, nausea, orthopnea, palpitations, paresthesias, polydipsia, polyuria, rash, sense of impending doom, syncope or vomiting Treatment prior to arrival: oxygen and bronchodilator Review of Systems Const: Denies: fever(s) or diaphoresis ENMT: Denies: throat pain, ear or mastoid pain, nasal discharge or nasal congestion Card: Denies: chest pain, palpitations, lightheadedness, syncope or orthopnea Resp: Reports: chest congestion; Denies: hemoptysis GI: Denies: abdominal pain or nausea : Denies: flank pain, dysuria, urinary frequency or urinary urgency Musc: Denies: extremity pain Skin/Breast: Denies: rash or pruritus Neuro: Denies: dizziness Endo: Denies: polydipsia PFSH ED PFSH: Medical History ASHD (arteriosclerotic heart disease) Patient is known to have coronary artery disease and coronary artery bypass surgery. Asthma Atrial fibrillation Patient is known to have easy bruising and bleeding. So he is not able to take the oral anticoagulation. He has been taking the aspirin. Carpal tunnel syndrome COPD (chronic obstructive pulmonary disease) Dermatitis Hyperlipidemia Hypertension Surgical History H/O hernia repair History of removal of cyst Hx of CABG Hx of tonsillectomy Family History Other CAD (coronary artery disease) Cancer Social History Smoking and tobacco status: never smoked Alcohol intake: never Physical Exam Const: COMMON NORMALS: no acute distress GENERAL APPEARANCE: cooperative and comfortable ORIENTATION/CONSCIOUSNESS: Yes awake, Yes oriented to person, Yes oriented to place and Yes oriented to time HENMT: COMMON NORMALS: normocephalic, atraumatic and hearing grossly normal bilaterally HEAD & SCALP: normocephalic and atraumatic Eye: COMMON NORMALS: Equal, round and reactive pupils present, EOMs intact bilaterally, conjunctivae normal and no scleral icterus CONJUNCTIVA: Yes conjunctivae normal PUPIL: Yes Equal, round and reactive pupils present Neck/C-Spine: COMMON NORMALS: full ROM, no lymphadenopathy, supple and no JVD Lymph: LYMPHATIC: no lymphadenopathy noted and no lymphedema noted Resp: AUSCULTATION: rhonchi and wheezes Cardio: COMMON NORMALS: no JVD, regular rate, regular rhythm and No murmurs present (Cardio) RATE: regular rate RHYTHM: regular rhythm GI: COMMON NORMALS: Soft to palpation and No hepatosplenomegaly present AUSCULTATION: Yes normoactive bowel sounds PALPATION: Yes Soft to palpation, No Tenderness to palpation present (GI), No Guarding due to palpation present (GI) and Yes No hepatosplenomegaly present Extremity: COMMON NORMALS: normal to inspection, capillary refill normal, no clubbing, cyanosis or edema, no calf tenderness and no pedal edema Neuro: SENSORIUM/ORIENTATION: Yes oriented to person, Yes oriented to place and Yes oriented to time Skin: COMMON NORMALS: no rashes or lesions noted GENERAL SKIN EXAM: no rashes or lesions noted Course Vital Signs: Vital signs: Vital Signs Temperature 98.4 F 01/04/20 08:01 Pulse Rate 78 01/04/20 10:40 Respiratory Rate 19 H 01/04/20 10:40 Blood Pressure 126/78 01/04/20 10:40 Pulse Oximetry 97 01/04/20 10:40 MDM - SOB/Dyspnea MDM Narrative: Medical decision making narrative: Is feeling better now on 2 L by nasal cannula. Respiratory therapy came by and did a blood gas and a home O2 eval he does require oxygen at 2 to 3 L/min. It has been ordered we will go ahead and discharge him home chest x-ray looked okay do not think he will benefit from further steroids antibiotics at this point. Follow-up with his primary care doctor and pulmonology as needed return if has worsening problems Lab Data: Labs: Lab Results 01/04/20 01/04/20 01/04/20 Range/Units 07:35 07:35 07:35 WBC 7.8 (4.0-10.0) 10^3/ uL RBC 4.68 (4.1-5.3) 10^6/u L Hgb 14.7 (11.7-16.6) g/dL Hct 44.5 (42.0-52.0) % MCV 95.1 H (80-94) fL MCH 31.4 (28.0-34.0) pg MCHC 33.0 (30.0-36.0) g/dL RDW 13.0 (12.1-15.1) % Plt Count 179 (130-400) 10^3/c mm MPV 10.0 (7.4-10.4) fL Neut % (Auto) 54.3 % Lymph % (Auto) 25.1 % [place] % (Auto) 8.0 % Eos % (Auto) 11.7 % Baso % (Auto) 0.8 % Neut # (Auto) 4.25 (1.8-7.7) 10^3/u L Lymph # (Auto) 2.0 (0.8-4.8) 10^3/u L [place] # (Auto) 0.6 (0.2-0.9) 10^3/u L Eos # (Auto) 0.9 H (0.0-0.8) 10^3/u L Baso # (Auto) 0.1 (0.0-0.1) 10^3/u L Nucleated RBC % (a uto) 0 % Nucleated RBCs # 0.0 /100WBC Specimen Type Sample Site ABG pH (7.35-7.45) ABG pCO2 (35-45) mmHg ABG pO2 (80.0-100.0) mmH g ABG HCO3 (22-26) mmol/L ABG O2 Saturation ABG Base Excess (-2.0-2.0) mmol/ L Jony Test A-a O2 Gradient (5-10) mmHg Hematocrit (42-52) % Hgb O2 Saturation (95-100) % Carboxyhemoglobin (0.4-20.1) %THgb Methemoglobin (0.4-1.5) % Total Hemoglobin (14-18) g/dL Ionized Calcium (1.1-1.4) mmol/L O2 Delivery Device Director Independent ID Sodium 137 (136-145) mmol/L Potassium 4.8 (3.5-5.1) mmol/L Chloride 97 L (98-107) mmol/L Carbon Dioxide 30 H (22-29) mmol/L Anion Gap 14.8 (5-19) BUN 7 L (8-23) mg/dL Creatinine 0.7 (0.7-1.2) mg/dL GFR Calculation Not Reportable Glucose 77 (65-115) mg/dL Calculated Osmolal ity 281 L (285-295) mOsm/k g Calcium 9.7 (8.5-10.5) mg/dL Total Bilirubin 0.4 (0.15-1.2) mg/dL AST 30 (0-40) U/L ALT 23 (0-41) U/L Alkaline Phosphata se 146 H (40-130) IU/L Troponin T Baselin e 35 H (0-15) ng/L Troponin T 120 Min [place] (0-15) ng/L Delta Troponin T (0-10) ABS# Total Protein 7.1 (6.6-8.7) g/dL Albumin 4.6 (3.5-5.2) g/dL Globulin 2.5 (1.3-4.6) g/dL 01/04/20 01/04/20 Range/Units 08:57 09:44 WBC (4.0-10.0) 10^3/ uL RBC (4.1-5.3) 10^6/u L Hgb (11.7-16.6) g/dL Hct (42.0-52.0) % MCV (80-94) fL MCH (28.0-34.0) pg MCHC (30.0-36.0) g/dL RDW (12.1-15.1) % Plt Count (130-400) 10^3/c mm MPV (7.4-10.4) fL Neut % (Auto) % Lymph % (Auto) % [place] % (Auto) % Eos % (Auto) % Baso % (Auto) % Neut # (Auto) (1.8-7.7) 10^3/u L Lymph # (Auto) (0.8-4.8) 10^3/u L [place] # (Auto) (0.2-0.9) 10^3/u L Eos # (Auto) (0.0-0.8) 10^3/u L Baso # (Auto) (0.0-0.1) 10^3/u L Nucleated RBC % (a uto) % Nucleated RBCs # /100WBC Specimen Type Arterial Sample Site Radial, right ABG pH 7.43 (7.35-7.45) ABG pCO2 42.2 (35-45) mmHg ABG pO2 59.7 L (80.0-100.0) mmH g ABG HCO3 28.0 H (22-26) mmol/L ABG O2 Saturation 92.3 ABG Base Excess 3.3 H (-2.0-2.0) mmol/ L Jony Test Pos A-a O2 Gradient 5.3 (5-10) mmHg Hematocrit 44.8 (42-52) % Hgb O2 Saturation 91.4 L (95-100) % Carboxyhemoglobin 0.7 (0.4-20.1) %THgb Methemoglobin 0.3 L (0.4-1.5) % Total Hemoglobin 14.6 (14-18) g/dL Ionized Calcium 1.2 (1.1-1.4) mmol/L O2 Delivery Device Room air Director Independent ID [place] Sodium 137.0 (136-145) mmol/L Potassium 4.2 (3.5-5.1) mmol/L Chloride (98-107) mmol/L Carbon Dioxide (22-29) mmol/L Anion Gap (5-19) BUN (8-23) mg/dL Creatinine (0.7-1.2) mg/dL GFR Calculation Glucose 103.0 (65-115) mg/dL Calculated Osmolal ity (285-295) mOsm/k g Calcium (8.5-10.5) mg/dL Total Bilirubin (0.15-1.2) mg/dL AST (0-40) U/L ALT (0-41) U/L Alkaline Phosphata se (40-130) IU/L Troponin T Baselin e (0-15) ng/L Troponin T 120 Min [place] 28.48 H (0-15) ng/L Delta Troponin T -6.52 L (0-10) ABS# Total Protein (6.6-8.7) g/dL Albumin (3.5-5.2) g/dL Globulin (1.3-4.6) g/dL Discharge Plan Discharge Patient Disposition: Home Clinical Impression: COPD (chronic obstructive pulmonary disease) Condition: Stable Prescriptions: No Action Brovana 15 mcg/2 mL solution for nebulization 2 ml INHALATION BID RF: 0 budesonide 0.25 mg/2 mL suspension for nebulization 2 ml INHALATION BID RF: 0 levothyroxine 75 mcg tablet 75 mcg PO DAILY RF: 0 montelukast [Singulair] 10 mg tablet 10 mg PO DAILY RF: 0 alprazolam 0.5 mg tablet 0.5 mg PO BID PRN (Reason: unknown) RF: 0 multivitamin Tablet 1 tab PO DAILY RF: 0 saw palmetto 450 mg capsule 450 mg PO BID RF: 0 aspirin 325 mg tablet,delayed release (DR/EC) 325 mg PO DAILY RF: 0 atorvastatin 40 mg tablet 40 mg PO DAILY RF: 0 loratadine 10 mg tablet 10 mg PO DAILY RF: 0 omeprazole 20 mg tablet,delayed release (DR/EC) 40 mg PO DAILY RF: 0 venlafaxine 150 mg tablet extended release 24hr 150 mg PO DAILY RF: 0 furosemide 40 mg tablet 40 mg PO DAILY RF: 0 metoprolol tartrate 50 mg tablet 50 mg PO BID Qty: 180 RF: 3 nitroglycerin [Nitrostat] 0.4 mg tablet, sublingual 0.4 mg SUBLINGUAL Q5M PRN (Reason: chest pain) Qty: 30 RF: 3 ipratropium-albuterol 0.5 mg-3 mg(2.5 mg base)/3 mL solution for nebulization 3 ml INHALATION Q6H Qty: 180 RF: 0 venlafaxine 75 mg capsule,extended release 24hr 75 mg PO DAILY RF: 0 albuterol sulfate 90 mcg/actuation HFA aerosol inhaler 2 inh INHALATION Q4H PRN (Reason: shortness of breath or wheezing) Qty: 18 RF: 0 albuterol sulfate 2.5 mg /3 mL (0.083 %) solution for nebulization 2.5 mg INHALATION Q6H PRN (Reason: shortness of breath or wheezing) Qty: 90 R F: 0 Discharge Orders: Discharge Order (Routine); Ordered 01/04/20 Ordered By: Maulik De Dios Other Ambulatory Orders: DME: Oxygen (Order) Location: None Selected Ordered By: Maulik De Dios Referrals: Alix Romero MD [Primary Care Provider] - Discharge Diet: Usual diet Discharge Activity: Resume usual activity Activity Restrictions/Additional Instructions: Wear oxygen continuously at 2 L/min follow-up with pulmonology and primary care as planned continue to use albuterol as needed as well. Coding Level of Care Code ED Freelance Designer for Antg Fwd Exam Comprehensive
[2020-01-04 08:50] LABS: Basophils # 0.1 10^3/uL (0.0-0.1); Basophils % 0.8 %; Eosinophils # 0.9 10^3/uL (0.0-0.8); Eosinophils % 11.7 %; Hematocrit 44.5 % (42.0-52.0); Hemoglobin 14.7 g/dL (11.7-16.6); Lymphocytes % 25.1 %; Mean Corpuscular Hemoglobin 31.4 pg (28.0-34.0); Mean Corpuscular Volume 95.1 fL (80-94); Monocytes # 0.6 10^3/uL (0.2-0.9); Neutrophils # 4.25 10^3/uL (1.8-7.7); Neutrophils % 54.3 %; Nucleated Red Blood Cells % 0 %; Platelet Count 179 10^3/cmm (130-400); Red Blood Count 4.68 10^6/uL (4.1-5.3); White Blood Count 7.8 10^3/uL (4.0-10.0)
[2020-01-04 09:08] LABS: ABG PCO2 42.2 mmHg (35-45); ABG PH Result 7.43 (7.35-7.45); Alveolar-Arterial Oxygen Gradi 5.3 mmHg (5-10); Arterial Blood Gas Hematocrit 44.8 % (42-52); Base Excess ABG 3.3 mmol/L (-2.0-2.0); Blood Gas Allen Test Pos; Blood Gas Operator Identificat BROMA; Blood Gas Sample Site Radial, right; Blood Gas Sample Type Arterial; Carboxyhemoglobin 0.7 %THgb (0.4-20.1); HGB O2 Sat 91.4 % (95-100); Ionized Calcium Level - ABG 1.2 mmol/L (1.1-1.4); Methemoglobin 0.3 % (0.4-1.5); Oxygen Device ROOM AIR; Oxygen Saturation ABG 92.3; PO2 ABG 59.7 mmHg (80.0-100.0); Potassium Level - ABG 4.2 mmol/L (3.5-5.0); Total Hemoglobin 14.6 g/dL (14-18)
[2020-01-04 09:08] LABS: Alanine Aminotransferase 23 U/L (0-41); Albumin Level 4.6 g/dL (3.5-5.2); Alkaline Phosphatase 146 IU/L (40-130); Blood Urea Nitrogen 7 mg/dL (8-23); Calcium 9.7 mg/dL (8.5-10.5); Carbon Dioxide 30 mmol/L (22-29); Chloride 97 mmol/L (98-107); Globulin 2.5 g/dL (1.3-4.6); Glucose 77 mg/dL (65-115); Osmolality Calculated 281 mOsm/kg (285-295); Sodium 137 mmol/L (136-145); Total Bilirubin 0.4 mg/dL (0.15-1.2); Total Protein 7.1 g/dL (6.6-8.7)
[2020-01-04 09:09] LABS: Troponin(5th) Baseline 35 ng/L (0-15)
[2020-01-04 09:10] LABS: Anion Gap 14.8 (5-19); Aspartate Amino Transferase 30 U/L (0-40); Potassium 4.8 mmol/L (3.5-5.1)
[2020-01-04 09:25] VITALS: O2SAT 88; O2SAT 92; O2SAT 95
[2020-01-04 09:50] VITALS: BP 141/79; PULSE 74; RESP 21; O2SAT 96
[2020-01-04 10:21] LABS: Troponin 5 2HR 28.48 ng/L (0-15)
[2020-01-04 10:27] LABS: Troponin 5 2HR Delta -6.52 ABS# (0-10)
[2020-01-04 10:40] VITALS: BP 126/78; PULSE 78; RESP 19; O2SAT 97
[2020-01-04 11:48] VITALS: BP 133/63; PULSE 75; RESP 14; O2SAT 95
== END 2020-01-04 11:49 | disposition home or self-care (01) ==
PROVIDERS: Emergency Provider Family Medicine; PCP Family Medicine
DX: J44.9 Chronic obstructive pulmonary disease, unspecified (principal); Z79.82 Long term (current) use of aspirin; I48.91 Unspecified atrial fibrillation; E78.5 Hyperlipidemia, unspecified; I10 Essential (primary) hypertension; Z95.1 Presence of aortocoronary bypass graft
CPT/HCPCS: 12345; 36415; 36600; 71045; 80051; 80053; 82330; 82805; 83605; 84484; 85025; 93005; 99283

== ENCOUNTER → 2021-05-09 11:08 | Outpatient (BNVA) | payer MEDICARE, OTHER, SELFPAY | PROVIDERS: PCP Family Medicine; Visit Provider Internal Medicine Cardiovascular Disease | DX: I25.10 Atherosclerotic heart disease of native coronary artery without angina pectoris (principal); I10 Essential (primary) hypertension; J44.9 Chronic obstructive pulmonary disease, unspecified; E78.2 Mixed hyperlipidemia; I48.11 Longstanding persistent atrial fibrillation | CPT/HCPCS: 99214 ==

== ENCOUNTER → 2021-11-08 10:29 | Outpatient (BNVA) | payer MEDICARE, OTHER, SELFPAY | PROVIDERS: PCP Family Medicine; Visit Provider Internal Medicine Cardiovascular Disease | DX: I48.11 Longstanding persistent atrial fibrillation (principal); J44.9 Chronic obstructive pulmonary disease, unspecified; I10 Essential (primary) hypertension; E78.2 Mixed hyperlipidemia; I25.10 Atherosclerotic heart disease of native coronary artery without angina pectoris; Z95.1 Presence of aortocoronary bypass graft | CPT/HCPCS: 99214 ==

== ENCOUNTER → 2022-05-09 11:29 | Outpatient (BNVA) | payer MEDICARE, OTHER, SELFPAY | PROVIDERS: PCP Family Medicine; Visit Provider Internal Medicine Cardiovascular Disease | DX: I25.10 Atherosclerotic heart disease of native coronary artery without angina pectoris (principal); J44.9 Chronic obstructive pulmonary disease, unspecified; I10 Essential (primary) hypertension; E78.2 Mixed hyperlipidemia; I48.11 Longstanding persistent atrial fibrillation; Z79.01 Long term (current) use of anticoagulants; Z95.1 Presence of aortocoronary bypass graft; Z79.82 Long term (current) use of aspirin | CPT/HCPCS: 99214 ==

== ENCOUNTER → 2022-08-06 10:21 | Outpatient (BNVA) | payer MEDICARE, OTHER, SELFPAY | PROVIDERS: PCP Family Medicine; Visit Provider Nurse Practitioner Family | DX: L72.0 Epidermal cyst (principal); Z86.007 Personal history of in-situ neoplasm of skin; L57.0 Actinic keratosis; L85.3 Xerosis cutis; L57.8 Other skin changes due to chronic exposure to nonionizing radiation; L81.4 Other melanin hyperpigmentation; D22.5 Melanocytic nevi of trunk; Z71.89 Other specified counseling; L82.1 Other seborrheic keratosis; L85.8 Other specified epidermal thickening | CPT/HCPCS: 10060; 17004; 99213 ==

== ENCOUNTER → 2022-10-29 09:26 | Outpatient (BNVA) | payer MEDICARE, OTHER, SELFPAY | PROVIDERS: PCP Family Medicine; Visit Provider Podiatrist Foot & Ankle Surgery | DX: Q82.8 Other specified congenital malformations of skin (principal); L60.3 Nail dystrophy; I73.9 Peripheral vascular disease, unspecified; R09.89 Other specified symptoms and signs involving the circulatory and respiratory systems | CPT/HCPCS: 11721; 17110; 99203 ==

== ENCOUNTER → 2022-12-11 12:07 | Outpatient (BNVA) | payer MEDICARE, OTHER, SELFPAY | PROVIDERS: PCP Family Medicine; Visit Provider Internal Medicine Cardiovascular Disease | DX: I25.10 Atherosclerotic heart disease of native coronary artery without angina pectoris (principal); R06.02 Shortness of breath; I45.10 Unspecified right bundle-branch block; I48.11 Longstanding persistent atrial fibrillation; I10 Essential (primary) hypertension; E78.2 Mixed hyperlipidemia; J44.9 Chronic obstructive pulmonary disease, unspecified; R00.1 Bradycardia, unspecified | CPT/HCPCS: 93005; 99214 ==

== ENCOUNTER 2022-12-17 07:44 | Outpatient (CLI) | payer MEDICARE, OTHER, SELFPAY ==
--- NOTE | 2022-12-17 | ECG_ITS ---
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 Interpretive Statements NAME OF STUDY: LEXISCAN SESTAMIBI STRESS TEST INDICATION: EXERTIONAL SOB PROCEDURE: At the baseline, the blood pressure was 139/83 mmHg with a heart rate of 63 beats per min. The electrocardiogram showed sinus rhythm, normal axis and isolated PVCs. Right bundle branch block. ??? The Lexiscan was infused over a period of 20 seconds. A total of 0.4 milligrams of Lexiscan was infused. The stress phase was continued for a total of 5 minutes. Heart rate at the end of the stress phase was 74 beats per min with a blood pressure of 135 over 69 mm Hg. The EKG at the peak infusion revealed no significant ST-T wave changes. ??? Sestamibi was injected 20 seconds after the Lexiscan infusion. ??? Blood pressure at the end of the recovery phase was 123/71 mmHg with a heart rate of 73 beats per minute. ??? CONCLUSION: 1. No significant EKG changes with the LexiScan infusion. 2. No LexiScan induced chest pain or cardiac arrhythmia. 3. Normal blood pressure and heart rate response. 4. Sestamibi/sestamibi perfusion scan pending; see separate report. Electronically Signed On 12-22-2022 9:34:47 FINANCIAL SERVICE REP by Harmony Guerin M.[id number]
--- NOTE | 2022-12-17 07:52 | NMCV_ITS ---
NM theodora perf SPECT r/s* [id number] Sai Sutton Age: 82 Gender: M : 1940 Exam Date: 12/17/2022 07:52 Ordering Phys: Harmony Guerin MD ([email or web address]) Technologist: CEDRIC Dangelo Exam Location: [facility] Indications: SHORTNESS OF BREATH STRESS TEST Please [facility] IMAGE PROTOCOL Rest/Stress 1 Lexiscan Day Radiopharmaceutical Dose (mCi) Administration Site Administered by Rest: Tc-99m 10.7 IV CEDRIC Gillespie Sestamibi Stress:Tc-99m 32.7 IV CEDRIC Gillespie Sestamibi Rest: 17-Dec-2022 60 Discovery 630 Stress: 17-Dec-2022 30 Discovery 630 0.4mg Lexiscan. Images obtained in supine and prone position. SPECT RESULTS Technical Quality: Excellent Raw Data Analysis: Normal Image Corrections: No attenuation or motion correction applied Summed Stress Score: 2 Summed Rest Score: 1 Summed Difference Score: 1 PERFUSION FINDINGS Small sized perfusion abnormality of mild severity of mid inferolateral and apical lateral wall on supine stress images with improved tracer uptake in prone stress images. This is very likely suggestive of attenuation artifac FUNCTIONAL RESULTS (calculated via Gated SPECT) Stress Image LV EF (%): 68 Stress EDV (mL):98 TID: 1.03 Stress ESV (mL):31 FUNCTIONAL FINDINGS: The left ventricle is normal in size. Transient Ischemia Dilatation of 1. The left ventricular ejection fraction is normal with a value of 68%. There is normal left ventricular wall thickening. Normal end-diastolic end-systolic volume. IMPRESSIONS Myocardial perfusion imaging is normal. Attenuation artifact in mid inferolateral and apical lateral gordon. Overall left ventricular systolic function is normal without regional wall motion abnormalities, LVEF=68%. EKG portion of the study will be reported separately Harmony Guerin MD (Electronically Signed) Final Date: 30 December 2022 08:02 S
[2022-12-17 08:01] VITALS: BMI 41.1
[2022-12-17] MEDS: regadenoson 0.4 Mg/5 ml Syringe IVP (09:27)
[2022-12-17 09:52] VITALS: BP 119/73; PULSE 73
== END 2022-12-17 07:45 | disposition home or self-care (01) ==
LOC: CDL 07:45
PROVIDERS: PCP Family Medicine; Visit Provider Internal Medicine Cardiovascular Disease
DX: R06.02 Shortness of breath (principal)
CPT/HCPCS: 36415; 78452; 93017; 96374; A9500; J2785

== ENCOUNTER → 2023-02-03 14:40 | Outpatient (BNVA) | payer MEDICARE, OTHER, SELFPAY | PROVIDERS: PCP Family Medicine; Visit Provider Podiatrist Foot & Ankle Surgery | DX: Q82.8 Other specified congenital malformations of skin (principal); L60.3 Nail dystrophy; I73.9 Peripheral vascular disease, unspecified; R09.89 Other specified symptoms and signs involving the circulatory and respiratory systems | CPT/HCPCS: 11721; 17110 ==

== ENCOUNTER → 2023-02-05 09:50 | Outpatient (BNVA) | payer MEDICARE, OTHER, SELFPAY | PROVIDERS: PCP Family Medicine; Visit Provider Nurse Practitioner Family | DX: Z86.007 Personal history of in-situ neoplasm of skin (principal); L57.0 Actinic keratosis; L72.0 Epidermal cyst; L85.3 Xerosis cutis; L57.8 Other skin changes due to chronic exposure to nonionizing radiation; D22.5 Melanocytic nevi of trunk; L81.4 Other melanin hyperpigmentation; L82.1 Other seborrheic keratosis; L85.8 Other specified epidermal thickening; L82.0 Inflamed seborrheic keratosis | CPT/HCPCS: 17000; 17110; 99213 ==

== ENCOUNTER → 2023-02-24 09:59 | Outpatient (BNVA) | payer MEDICARE, OTHER, SELFPAY | PROVIDERS: PCP Family Medicine; Referring Provider Family Medicine; Visit Provider Internal Medicine Pulmonary Disease | DX: J82.83 Eosinophilic asthma (principal); G47.33 Obstructive sleep apnea (adult) (pediatric); Z99.89 Dependence on other enabling machines and devices; Z87.891 Personal history of nicotine dependence; R06.02 Shortness of breath | CPT/HCPCS: 36415; 82785; 85025; 86003; 99204 ==

== ENCOUNTER 2023-02-26 09:43 | Outpatient (CLI) | payer MEDICARE, OTHER, SELFPAY ==
[2023-02-26 10:04] VITALS: PULSE 71; RESP 18; O2SAT 96
[2023-02-26] MEDS: albuterol 2.5 mg/3 mL Neb INHALATION (10:04)
[2023-02-26 10:09] VITALS: PULSE 73
--- NOTE | 2023-02-26 10:29 | XR_ITS ---
WS: [id number] XR chest 2V* [id number] REASON FOR EXAM: SOB FINDINGS: The chest is similar compared to 01/04/2020. Previous coronary artery bypass surgery. Chronic reticular interstitial lung opacities left lower lung. Linear calcifications overlying the le ft lower lateral lung field on the PA view which may be pleural. Mild elevation of the right hemidiaphragm. Calcified granulomatous disease. No active pulmonary parenchymal or pleural disease. Artery bypass surgery. Mild tortuosity of the thoracic aorta. Normal heart size. IMPRESSION: No acute chest abnormality.
== END 2023-02-26 09:44 | disposition home or self-care (01) ==
PROVIDERS: PCP Family Medicine; Visit Provider Internal Medicine Pulmonary Disease
DX: R06.02 Shortness of breath (principal); J44.9 Chronic obstructive pulmonary disease, unspecified; Z95.1 Presence of aortocoronary bypass graft
CPT/HCPCS: 36415; 71046; 82785; 85025; 86003; 94060; 94618; 94726; 94729; J7613

== ENCOUNTER → 2023-04-16 10:57 | Outpatient (BNVA) | payer MEDICARE, OTHER, SELFPAY | PROVIDERS: PCP Family Medicine; Visit Provider Internal Medicine Cardiovascular Disease | DX: R06.02 Shortness of breath (principal) | CPT/HCPCS: 36415; 80048; 83880; 99214 ==

== ENCOUNTER → 2023-04-21 11:01 | Outpatient (BNVA) | payer MEDICARE, OTHER, SELFPAY | PROVIDERS: PCP Family Medicine; Visit Provider Internal Medicine Pulmonary Disease | DX: J82.83 Eosinophilic asthma (principal); J45.909 Unspecified asthma, uncomplicated; G47.33 Obstructive sleep apnea (adult) (pediatric); Z87.891 Personal history of nicotine dependence | CPT/HCPCS: 99214 ==

== ENCOUNTER → 2023-05-07 12:34 | Outpatient (BNVA) | payer MEDICARE, OTHER, SELFPAY | PROVIDERS: PCP Family Medicine; Visit Provider Podiatrist Foot & Ankle Surgery | DX: L60.3 Nail dystrophy (principal); I73.9 Peripheral vascular disease, unspecified; R09.89 Other specified symptoms and signs involving the circulatory and respiratory systems; L84 Corns and callosities | CPT/HCPCS: 11055; 11721 ==

== ENCOUNTER → 2023-07-30 13:19 | Outpatient (BNVA) | payer MEDICARE, OTHER, SELFPAY | PROVIDERS: PCP Family Medicine; Visit Provider Podiatrist Foot & Ankle Surgery | DX: L60.3 Nail dystrophy (principal); I73.9 Peripheral vascular disease, unspecified; R09.89 Other specified symptoms and signs involving the circulatory and respiratory systems; L84 Corns and callosities | CPT/HCPCS: 11055; 11721 ==

== ENCOUNTER 2023-08-04 20:47 | Emergency (ER) | payer MEDICARE, OTHER, SELFPAY ==
[2023-08-04 20:55] VITALS: BP 165/71; PULSE 103; RESP 20; TEMP 38.9; O2SAT 93
--- NOTE | 2023-08-04 21:00 | ECG_ITS ---
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 Measurements Intervals Mobile Rate: 104 P: 69 VA: 188 QRS: 99 QRSD: 150 T: 61 QT: 341 QTc: 449 Interpretive Statements SINUS TACHYCARDIA POSSIBLE LEFT ATRIAL ENLARGEMENT [-0.1mV P-WAVE IN V1/V2] RIGHT BUNDLE BRANCH BLOCK [120+ ms QRS DURATION, UPRIGHT V1, 40+ ms S IN I/aVL/V4/V5/V6] ST DEPRESSION, CONSIDER SUBENDOCARDIAL INJURY [0.1+ mV ST DEPRESSION] Compared to ECG 12/11/2022 12:16:50 ST (T wave) deviation now present Sinus bradycardia no longer present Electronically Signed On 08-08-2023 13:20:42 CDT by Kobe Zaragoza M.D. [id number]
--- NOTE | 2023-08-04 21:42 | XRR_ITS ---
PROCEDURE INFORMATION: Exam: XR Chest Exam date and time: 08/04/2023 9:50 PM Age: 83 years old Clinical indication: Fever and other: Tachy; Prior surgery; Surgery date: 6+ months; Surgery type: Triple bypass; Additional info: Fever tachycardia TECHNIQUE: Imaging protocol: Radiologic exam of the chest. Views: 1 view. COMPARISON: CR XR chest 2V* [id number] 02/26/2023 10:55 AM FINDINGS: Lungs: Chronic mild to moderate bibasilar strand-like atelectasis/scar again demonstrated. Questionable increased hazy density superimposed in the left lung base. Pleural spaces: Unremarkable. No definite/ large pleural effusion. No pneumothorax. Heart/Mediastinum: Unremarkable. No cardiomegaly. Bones/joints: Multiple median sternotomy wires again noted. XR/XR chest 1V portable [id number] IMPRESSION: Chronic bibasilar scarring with questionable superimposed increased density of the left base due to pneumonitis or increased atelectatic change.
--- NOTE | 2023-08-04 21:44 | ECG_ITS ---
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 Measurements Intervals [place] Rate: 96 P: 52 AR: 188 QRS: 95 QRSD: 147 T: 43 QT: 349 QTc: 442 Interpretive Statements SINUS RHYTHM POSSIBLE LEFT ATRIAL ENLARGEMENT [-0.1mV P-WAVE IN V1/V2] RIGHT BUNDLE BRANCH BLOCK [120+ ms QRS DURATION, UPRIGHT V1, 40+ ms S IN I/aVL/V4/V5/V6] ST DEVIATION AND MARKED T-WAVE ABNORMALITY, CONSIDER ANTERIOR ISCHEMIA [-0.5+ mV T-WAVE IN V3/V4] Compared to ECG 08/04/2023 20:59:12 T-wave abnormality now present Possible ischemia now present Sinus tachycardia no longer present ST (T wave) deviation no longer present Electronically Signed On 08-08-2023 13:21:08 CDT by Kobe Zaragoza M.D. [id number]
--- NOTE | 2023-08-04 21:44 | CTR_ITS ---
PROCEDURE INFORMATION: Exam: CT Head Without Contrast Exam date and time: 08/04/2023 10:16 PM Age: 83 years old Clinical indication: Dizziness and other: Vertigo; Additional info: Headache tinnitus vertigo TECHNIQUE: Imaging protocol: Computed tomography of the head without contrast. Radiation optimization: All CT scans at this facility use at least one of these dose optimization techniques: automated exposure control; mA and/or kV adjustment per patient size (includes targeted exams where dose is matched to clinical indication); or iterative reconstruction. COMPARISON: CR XR cervical spine 3V* [id number] 03/05/2017 6:31 PM RADIATION DOSE METRICS: Total DLP (mGy-cm): 1108.07 FINDINGS: Brain: Mild chronic white matter change in the deep cerebral white matter. No hemorrhage. Unremarkable white matter. No mass effect. Cerebral ventricles: No ventriculomegaly. Paranasal sinuses: Visualized sinuses are unremarkable. No fluid levels. Mastoid air cells: Visualized mastoid air cells are well aerated. Bones: Unremarkable. No acute fracture. Soft tissues: 1.9 cm presumed sebaceous cyst in the right suboccipital soft tissues (series 3, image 2). CT/CT head wo con* [id number] IMPRESSION: No acute intracranial abnormality on CT. Further evaluation with MR as clinically warranted.
[2023-08-04] MEDS: acetaminophen 500 mg Tablet 1000 MG PO (21:58)
[2023-08-04 21:59] LABS: Basophils % 0.2 %; Eosinophils % 0.2 %; Hematocrit 40.1 % (37-53); Lymphocytes # 1.1 10^3/uL (0.8-4.8); Lymphocytes % 9.7 %; Mean Corpuscular HGB Conc 34.4 g/dL (30-55); Mean Corpuscular Hemoglobin 31.9 pg (27-33); Mean Corpuscular Volume 92.6 fl (82-101); Mean Platelet Volume 9.9 fL (7.4-10.4); Monocytes # 0.8 10^3/uL (0.2-0.9); Monocytes % 6.6 %; Neutrophils # 9.67 10^3/uL (1.8-7.7); Neutrophils % 83.1 %; Nucleated Red Blood Cells % 0 %; Platelet Count 164 10^3/cmm (157-399); Red Blood Count 4.33 10^6/uL (3.85-5.65); Red Cell Distribution Width 13.1 % (12.1-15.1); White Blood Count 11.63 10^3/uL (3.29-11.43)
[2023-08-04] MEDS: sodium chloride 0.9% 1,000 ML 999 ML IV (21:59)
[2023-08-04 22:18] LABS: Troponin(5th) Baseline 50 ng/L (0-15)
[2023-08-04 22:28] LABS: Procalcitonin 0.11 ng/mL (0-0.5); Thyroid Stimulating Hormone 2.85 uIU/mL (0.27-4.20)
--- NOTE | 2023-08-04 22:33 | ED_ITS ---
HPI - Headache 2 General: Chief Complaint: Headache Stated Complaint: sob shaking and spasms pain shoot through head Time Seen by Provider: 08/04/23 21:40 History of Present Illness: Patient presents to the ER with complaints of sharp shooting headache going from 1 year to the other ear like a lightening bolt, he says he hears blue J's in his left ear sounds like a TURP, patient also has dizziness lightheadedness chills and shortness of breath. Patient does have a history of asthma and COPD. The sharp shooting headache he has had multiple times before but never quite this bad. He states the day it only last for a brief second but enough to just about take him to the ground. And this causes his whole head to hurt all over., Patient states he has heard these noises in his left ear off and on for quite some time he says they are normal and have not changed. 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 Patient states he when he takes a big deep breath it hurts deep in his chest to where he has to stop. Upon arrival here patient's blood pressure was 165/71 his heart rate was 103 his respirations 20 and his temperature was 102.1. O2 sat was 93% on room air. Patient does have a history of A-fib per the chart also history of blood clots, he is not able to take anticoagulation because he bruises and bleeds too easily. He is also has an throw sclerotic heart disease and has had a CABG in the past. Patient sees Dr. Tate patient denies having any chest pain today or during his ER stay. Review of Systems 2 General: Reports: 10 or more systems reviewed and unremarkable except in HPI and below PFSH ED 2 PFSH: Medical History Hx of blood clots Hypertension Hyperlipidemia Asthma COPD (chronic obstructive pulmonary disease) ASHD (arteriosclerotic heart disease) Patient is known to have coronary artery disease and coronary artery bypass surgery. Atrial fibrillation Patient is known to have easy bruising and bleeding. So he is not able to take the oral anticoagulation. He has been taking the aspirin. Carpal tunnel syndrome Dermatitis Surgical History Hx of bilateral cataract extraction Hx of tonsillectomy H/O hernia repair Hx of CABG History of removal of cyst Family History Father CAD (coronary artery disease) Cancer Grandfather Lung disease Cancer Mother Lung disease Denies family history of Diabetes Clotting disorder Dementia Chronic kidney disease (CKD) Suicide Anesthesia complication Bleeding disorder Stroke Social History Smoking and tobacco/nicotine status: former use of tobacco/nicotine Quit status (tobacco/nicotine): has quit using Year quit tobacco: 1974 Former quit date comment: 1 ppd X 11 years Alcohol intake: never Substance/Drug Use: never Physical Exam 2 Const: COMMON NORMALS: no acute distress, average body habitus, patient oriented x3, no limitations, healthy appearing, alert and well nourished HENMT: COMMON NORMALS: normocephalic, atraumatic, hearing grossly normal bilaterally, external ears normal, Normal external nose present and moist oral mucous membranes HEAD & SCALP: normocephalic and atraumatic NOSE: Normal external nose present EXTERNAL EAR: Yes external ears normal Neck/C-Spine: COMMON NORMALS: no JVD Chest: COMMONS NORMALS: normal inspection of the chest; negative for normal palpation of entire chest wall (Tender to palpation over left anterior chest wall) Resp: COMMON NORMALS: normal respiratory effort, No retractions, No use of accessory muscles and clear to auscultation bilaterally AUSCULTATION: clear to auscultation bilaterally Cardio: COMMON NORMALS: no JVD, regular rate, regular rhythm, S1 normal heart sound present, S2 normal heart sound present, No gallops present (Cardio), No clicks present (Cardio), No murmurs present (Cardio) and No rub (Cardio) R ATE: regular rate RHYTHM: regular rhythm HEART SOUNDS: S1 normal heart sound present and S2 normal heart sound present GI: COMMON NORMALS: Normal to inspection, nondistended, normoactive bowel sounds present, Soft to palpation, non-tender, No hepatosplenomegaly present and no masses PALPATION: Yes Soft to palpation and Yes No hepatosplenomegaly present Neuro: COMMON NORMALS: patient oriented x3 SENSORIUM/ORIENTATION: Yes alert Course 2 Vital Signs: Vital signs: Vital Signs Temperature 100.0 F H 08/05/23 02:22 Pulse Rate 88 08/05/23 02:22 Respiratory Rate 16 08/05/23 02:22 Blood Pressure 110/67 08/05/23 02:22 Pulse Oximetry 91 08/05/23 02:22 Oxygen Delivery Me thod Room Air 08/04/23 20:55 MDM - Headache Medical Decision Making Patient was worked up with blood work, urinalysis, respiratory panel, chest x- ray, head CT, chest abdomen pelvis CT, patient was given Tylenol and Motrin and bolused a liter of fluid for his fever. Patient had blood cultures obtained. White count was 11.63, chest x-ray was essentially negative except for maybe some pneumonitis related lytic changes, head CT was negative, chest abdomen pelvis CT did show some right middle lobe pneumonia, patient was given Omnicef for this pneumonia and a [place] for his headache. Patient be discharged on Omnicef and instructed uses Tylenol and Motrin as needed for fever and follow-up with his PCP within the next 7 days. Differential Diagnosis Likely headache Medical Records I reviewed the patient's medical records. Lab Data I reviewed the patient's lab results. 08/04/23 21:45 08/04/23 21:45 Radiology Impressions Chest X-Ray 08/04/23 21:42 IMPRESSION: Chronic bibasilar scarring with questionable superimposed increased density of the left base due to pneumonitis or increased atelectatic change. Head CT 08/04/23 21:44 IMPRESSION: No acute intracranial abnormality on CT. Further evaluation with MR as clinically warranted. Chest/Abdomen/Pelvis CT 08/05/23 00:14 IMPRESSION: 1. Right middle lobe and basilar tree-in-bud nodularity and scattered micronodularity with associated atelectasis and small regions of terminal airway filling. Nonspecific, and may represent infection, aspiration, inflammation or combination of the former entities. Recommend re-evaluation after completed clinical treatment to assess for stability of the findings (6-8 weeks). 2. Additional lingular solid nodule. For patients at low risk (minimal or absent history of smoking and of other known risk factors), no routine follow-up is indicated. For patients at high risk (history of smoking or of other known risk factors), consider optional CT Chest at 12 months. IMPRESSION: 1. No acute intra-abdominal findings. 2. Additional nonacute findings as above. 3. Please see separately reported CT of the thorax for intrathoracic findings and impression. COMMENTS: Consistent with the [place] [employer]'s Incidental Findings Committee white paper (J Am Juan Radiol 2018): Any incidental renal lesion less than 1 cm or classified as too small to characterize, or any incidental cystic renal lesion characterized as simple-appearing, is likely benign. No follow-up imaging is recommended for these lesions per consensus recommendations based on imaging criteria. Laboratory Results WBC 11.63 10^3/uL (3.29-11.43) H 08/04/23 21:45 RBC 4.33 10^6/uL (3.85-5.65) 08/04/23 21:45 Hgb 13.80 g/dL (11.27-16.99) 08/04/23 21:45 Hct 40.1 % (37-53) 08/04/23 21:45 MCV 92.6 fl (82-101) 08/04/23 21:45 MCH 31.9 pg (27-33) 08/04/23 21:45 MCHC 34.4 g/dL (30-55) 08/04/23 21:45 RDW 13.1 % (12.1-15.1) 08/04/23 21:45 Plt Count 164 10^3/cmm (157-399) 08/04/23 21:45 MPV 9.9 fL (7.4-10.4) 08/04/23 21:45 Neut % (Auto) 83.1 % 08/04/23 21:45 Lymph % (Auto) 9.7 % 08/04/23 21:45 [place] % (Auto) 6.6 % 08/04/23 21:45 Eos % (Auto) 0.2 % 08/04/23 21:45 Baso % (Auto) 0.2 % 08/04/23 21:45 Neut # (Auto) 9.67 10^3/uL (1.8-7.7) H 08/04/23 21:45 Lymph # (Auto) 1.1 10^3/uL (0.8-4.8) 08/04/23 21:45 [place] # (Auto) 0.8 10^3/uL (0.2-0.9) 08/04/23 21:45 Eos # (Auto) 0.0 10^3/uL (0.0-0.8) 08/04/23 21:45 Baso # (Auto) 0.0 10^3/uL (0.0-0.1) 08/04/23 21:45 Nucleated RBC % (auto) 0 % 08/04/23 21:45 Nucleated RBCs # 0.0 /100WBC 08/04/23 21:45 Sodium 133 mmol/L (136-145) L 08/04/23 21:45 Potassium 4.2 mmol/L (3.5-5.1) 08/04/23 21:45 Chloride 94 mmol/L (98-107) L 08/04/23 21:45 Carbon Dioxide 24 mmol/L (22-29) 08/04/23 21:45 Anion Gap 19.2 (5-19) H 08/04/23 21:45 BUN 13 mg/dL (8-23) 08/04/23 21:45 Creatinine 1.1 mg/dL (0.7-1.2) 08/04/23 21:45 GFR Calculation Not Reportable 08/04/23 21:45 Glucose 109 mg/dL (65-115) 08/04/23 21:45 Calculated Osmolality 277 mOsm/kg (285-295) L 08/04/23 21:45 Lactic Acid 2.0 mmol/L (0.5-2.2) 08/04/23 21:45 Calcium 9.3 mg/dL (8.5-10.5) 08/04/23 21:45 Magnesium 1.8 mg/dL (1.7-2.3) 08/04/23 21:45 Total Bilirubin 0.5 mg/dL (0.15-1.2) 08/04/23 21:45 AST 23 U/L (0-40) 08/04/23 21:45 ALT 21 U/L (0-41) 08/04/23 21:45 Alkaline Phosphatase 149 U/L (40-130) H 08/04/23 21:45 Troponin T Baseline 50 ng/L (0-15) H 08/04/23 21:45 Troponin T 120 Minute 35.14 ng/L (0-15) H 08/04/23 23:19 Delta Troponin T -14.86 ABS# (0-10) L 08/04/23 23:19 C-Reactive Protein 16.8 mg/L (0.0-4.9) H 08/04/23 21:45 Total Protein 7.2 g/dL (6.6-8.7) 08/04/23 21:45 Albumin 4.2 g/dL (3.5-5.2) 08/04/23 21:45 Globulin 3.0 g/dL (1.3-4.6) 08/04/23 21:45 Procalcitonin 0.11 ng/mL (0-0.5) 08/04/23 21:45 TSH 2.85 uIU/mL (0.27-4.20) 08/04/23 21:45 Urine Color Yellow (Yellow) 08/04/23 23:15 Urine Appearance Clear (CLEAR) 08/04/23 23:15 Urine pH 5 (5-7) 08/04/23 23:15 Ur Specific [place] 1.020 (1.005-1.030) 08/04/23 23:15 Urine Protein Neg (Negative) 08/04/23 23:15 Urine Glucose (UA) Norm (Normal) 08/04/23 23:15 Urine Ketones 1+ (Negative) H 08/04/23 23:15 Urine Blood Neg (Negative) 08/04/23 23:15 Urine Nitrate Negative (Negative) 08/04/23 23:15 Urine Bilirubin Neg (Negative) 08/04/23 23:15 Urine Urobilinogen Norm mg/dL (Negative) 08/04/23 23:15 Ur Leukocyte Esterase Negative (Negative) 08/04/23 23:15 Adenovirus (PCR) Not detected (NOT DETECT) 08/04/23 21:57 C. pneumoniae DNA (PCR) Not detected (NOT DETECT) 08/04/23 21:57 Coronavirus 229E (PCR) Not detected (NOT DETECT) 08/04/23 21:57 Human Metapneumovir PCR Not detected (NOT DETECT) 08/04/23 21:57 Influenza A (H1) PCR Not detected (NOT DETECT) 08/04/23 21:57 Influ A (H1/09) PCR Not detected (NOT DETECT) 08/04/23 21:57 Influenza A (H3) PCR Not detected (NOT DETECT) 08/04/23 21:57 Influenza Type A (PCR) Not detected (NOT DETECT) 08/04/23 21:57 Influenza Type B (PCR) Not detected (NOT DETECT) 08/04/23 21:57 M. pneumoniae (PCR) Not detected (NOT DETECT) 08/04/23 21:57 Parainfluenza 1 (PCR) Not detected (NOT DETECT) 08/04/23 21:57 Parainfluenza 2 (PCR) Not detected (NOT DETECT) 08/04/23 21:57 Parainfluenza 3 (PCR) Not detected (NOT DETECT) 08/04/23 21:57 Parainfluenza 4 (PCR) Not detected (NOT DETECT) 08/04/23 21:57 RSV Type A (PCR) Not detected (NOT DETECT) 08/04/23 21:57 RSV Type B (PCR) Not detected (NOT DETECT) 08/04/23 21:57 Entero/Rhino (PCR) Not detected (NOT DETECT) 08/04/23 21:57 SARS-CoV-2 (PCR) Not detected (NOT DETECT) 08/04/23 21:57 All radiology interpretation(s) finalized by discharge Discharge Plan Discharge Patient Disposition: Home Clinical Impression: Right middle lobe pneumonia Qualifiers: Pneumonia type: due to unspecified organism Qualified Code(s): J18.9 - Pneumonia, unspecified organism Fever Qualifiers: Fever type: unspecified Qualified Code(s): R50.9 - Fever, unspecified Condition: Stable Prescriptions: New cefdinir 300 mg capsule 300 mg PO BID 10 Days Qty: 20 0RF No Action montelukast [Singulair] 10 mg tablet 10 mg PO DAILY alprazolam 0.5 mg tablet 0.5 mg PO BID PRN (Reason: unknown) multivitamin Tablet 1 tab PO DAILY saw palmetto 450 mg capsule 450 mg PO BID aspirin 325 mg tablet,delayed release (DR/EC) 325 mg PO DAILY atorvastatin 40 mg tablet 40 mg PO DAILY loratadine 10 mg tablet 10 mg PO DAILY omeprazole 20 mg tablet,delayed release (DR/EC) 40 mg PO DAILY venlafaxine 150 mg tablet extended release 24hr 150 mg PO DAILY Rx Instructions: TAKES IN THE PM, takes with 75mg furosemide 40 mg tablet 80 mg PO DAILY levothyroxine [Euthyrox] 88 mcg tablet 88 mcg PO DAILY Patricio Cameronphere 160-9-4.8 mcg/actuation HFA aerosol inhaler 2 inh inhalation BID Qty: 10.7 6RF prednisone 10 mg tablet 10 mg PO DAILY Qty: 11 0RF Rx Instructions: 2 tabs x 10 mg = 20 mg x 3 days 1 tab x 10 mg = 10 mg x 5 days nitroglycerin [Nitrostat] 0.4 mg tablet, sublingual 0.4 mg SUBLINGUAL Q5M PRN (Reason: chest pain) Qty: 30 3RF metoprolol tartrate 50 mg tablet See Rx Instructions .ROUTE .COMPLEX Qty: 180 3RF Dose Instruction: Take 1 tablet by mouth twice daily Rx Instructions: Take 1 tablet by mouth twice daily albuterol sulfate 90 mcg/actuation HFA aerosol inhaler 2 inh INHALATION Q4H PRN (Reason: shortness of breath or wheezing) Qty: 18 0RF albuterol sulfate 2.5 mg /3 mL (0.083 %) solution for nebulization 2.5 mg INHALATION Q6H PRN (Reason: shortness of breath or wheezing) Qty: 90 0RF venlafaxine 75 mg capsule,extended release 24hr 75 mg PO .hs Discharge Orders: Discharge ED (Routine); Ordered 08/05/23 Ordered By: Bill Samuels Referrals: Alix Romero MD [Primary Care Provider] - 1 week Patient Instructions: Fever in Adults (ED), Pneumonia - Bacterial Activity Restrictions/Additional Instructions: Your evaluation showed you may have a better right middle lobe pneumonia, you have been prescribed cefdinir to help with his pneumonia. Please continue to use [id number] Tylenol and Motrin as needed [id number] for fever. If you let your fever get high this will make you feel worse all over. Please follow-up with your family practitioner within the next 7 days for further evaluation and treatment. If your symptoms worsen please feel free to return to the ER. Coding Level of Care Code ED Steel [employer]itter for Alfredo Hardy
[2023-08-04 22:39] LABS: Alanine Aminotransferase 21 U/L (0-41); Albumin Level 4.2 g/dL (3.5-5.2); Alkaline Phosphatase 149 U/L (40-130); Aspartate Amino Transferase 23 U/L (0-40); Blood Urea Nitrogen 13 mg/dL (8-23); C Reactive Protein 16.8 mg/L (0.0-4.9); Calcium 9.3 mg/dL (8.5-10.5); Carbon Dioxide 24 mmol/L (22-29); Chloride 94 mmol/L (98-107); Creatinine Clr Calc Pharmacy 62.2615; Glucose 109 mg/dL (65-115); Magnesium 1.8 mg/dL (1.7-2.3); Osmolality Calculated 277 mOsm/kg (285-295); Sodium 133 mmol/L (136-145); Total Bilirubin 0.5 mg/dL (0.15-1.2); Total Protein 7.2 g/dL (6.6-8.7)
[2023-08-04 22:42] LABS: Anion Gap 19.2 (5-19); Potassium 4.2 mmol/L (3.5-5.1)
[2023-08-04 22:57] VITALS: PULSE 98; RESP 16; O2SAT 92
[2023-08-04 23:19] LABS: Add Urine Microscopic? NO; Charge for UA Resulting for Rev
[2023-08-04 23:30] LABS: Urine Appearance Clear (CLEAR); Urine Color Yellow (Yellow); pH Urine 5 (5-7)
[2023-08-04 23:32] LABS: Bilirubin Urine Neg (Negative); Blood Urine Neg (Negative); Glucose Urine UA Norm (Normal); Ketones Urine 1+ (Negative); Leukocyte Esterase Urine Negative (Negative); Nitrate Urine Negative (Negative); Protein Urine Neg (Negative); Urobilinogen Urine Norm (Negative)
--- NOTE | 2023-08-04 23:44 | ECG_ITS ---
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 Measurements Intervals [place] Rate: 90 P: 56 LA: 196 QRS: 83 QRSD: 157 T: 45 QT: 369 QTc: 453 Interpretive Statements SINUS RHYTHM RIGHT BUNDLE BRANCH BLOCK [120+ ms QRS DURATION, UPRIGHT V1, 40+ ms S IN I/aVL/V4/V5/V6] MARKED T-WAVE ABNORMALITY, CONSIDER ANTERIOR ISCHEMIA [-0.5+ mV T-WAVE IN V3/V4] Compared to ECG 08/04/2023 22:08:58 No significant changes Electronically Signed On 08-08-2023 13:47:46 CDT by Kobe Zaragoza M.D. [id number]
[2023-08-04 23:48] LABS: Troponin 5 2HR 35.14 ng/L (0-15)
[2023-08-04 23:49] LABS: Adenovirus Not Detected (NOT DETECT); Chlamydia Pneumoniae Not Detected (NOT DETECT); Coronavirus 229E,HKU1,NL63,OC4 Not Detected (NOT DETECT); Human Metapneumovirus Not Detected (NOT DETECT); Human Rhinovirus/Enterovirus Not Detected (NOT DETECT); Influenza A Not Detected (NOT DETECT); Influenza A H1 Not Detected (NOT DETECT); Influenza A H1-2009 Not Detected (NOT DETECT); Influenza A H3 Not Detected (NOT DETECT); Influenza B Not Detected (NOT DETECT); Mycoplasma Pneumoniae Not Detected (NOT DETECT); Parainfluenza Virus Type 1 Not Detected (NOT DETECT); Parainfluenza Virus Type 2 Not Detected (NOT DETECT); Parainfluenza Virus Type 3 Not Detected (NOT DETECT); Parainfluenza Virus Type 4 Not Detected (NOT DETECT); Respiratory Syncytial Virus A Not Detected (NOT DETECT); Respiratory Syncytial Virus B Not Detected (NOT DETECT); SARS-COV-2 Not Detected (NOT DETECT)
[2023-08-04 23:50] LABS: Troponin 5 2HR Delta -14.86 ABS# (0-10)
[2023-08-04 23:54] VITALS: PULSE 91; RESP 16; TEMP 39; O2SAT 91
[2023-08-04] MEDS: ibuprofen 800 mg tablet PO (23:57)
--- NOTE | 2023-08-05 00:14 | CTR_ITS ---
PROCEDURE INFORMATION: Exam: CT Chest Without Contrast; Diagnostic Exam date and time: 08/05/2023 12:37 AM Age: 83 years old Clinical indication: Fever; Prior surgery; Surgery date: 6+ months; Surgery type: Hernia; Additional info: Fever tachycardia leukocytosis TECHNIQUE: Imaging protocol: Diagnostic computed tomography of the chest without contrast. Radiation optimization: All CT scans at this facility use at least one of these dose optimization techniques: automated exposure control; mA and/or kV adjustment per patient size (includes targeted exams where dose is matched to clinical indication); or iterative reconstruction. COMPARISON: CT angio chest [id number] 01/05/2020 12:56 PM RADIATION DOSE METRICS: Total DLP (mGy-cm): 1262.6 FINDINGS: Trachea: Dependent short-segment regions of opacification of the terminal airways of the bilateral lower lobes. Lungs: Right lower lobe granuloma (series 6, image 45). Right middle lobe and bilateral lower lobe tree-in-bud nodularity and scattered micronodularity, wzelh-ezoowfm-ghhe-left. Basilar atelectasis, tdgjp-anfduey-vshn-left. Lingular solid nodule measuring up to 5 mm (series 6, image 36). Pleural spaces: Unremarkable. No pneumothorax. No pleural effusion. Heart: Unremarkable. No cardiomegaly. No pericardial effusion. Coronary arteries: Severe calcified atherosclerotic disease of the marshall coronary arteries. Lymph nodes: Unremarkable. No enlarged lymph nodes. Vasculature: Jeth-gd-ijnuiclm calcified atherosclerotic disease of the intrathoracic aorta and its major branches. Postprocedural change of the carotid arteries. Bones/joints: Status post sternotomy. Diffuse moderate to severe degenerative change of the visualized osseous structures. Soft tissues: Unremarkable. (Reference: Nathen) 3. Additional findings as above. 4. Please see separately reported CT of the abdomen and pelvis for intra-abdominal findings and impression. REFERENCES: Nathen Joseph et al. Guidelines for Management of Incidental Pulmonary Nodules Detected on CT Images: From the Fleischner Society 2017. Radiology. 2017;284(1):228-243. PROCEDURE INFORMATION: Exam: CT Abdomen And Pelvis Without Contrast Exam date and time: 08/05/2023 12:37 AM Age: 83 years old Clinical indication: Fever; Prior surgery; Surgery date: 6+ months; Surgery type: Hernia; Additional info: Fever tachycardia leukocytosis TECHNIQUE: Imaging protocol: Computed tomography of the abdomen and pelvis without contrast. Radiation optimization: All CT scans at this facility use at least one of these dose optimization techniques: automated exposure control; mA and/or kV adjustment per patient size (includes targeted exams where dose is matched to clinical indication); or iterative reconstruction. COMPARISON: CT angio chest [id number] 01/05/2020 12:56 PM RADIATION DOSE METRICS: Total DLP (mGy-cm): 1262.6 FINDINGS: Lungs: Please see separately reported CT of the thorax for intrathoracic findings and impression. Heart: Please see separately reported CT of the thorax for intrathoracic findings and impression. Liver: Normal. No mass. Gallbladder and bile ducts: Layering hyperdense sludge versus cholelithiasis. Pancreas: Mild to moderate pancreatic atrophy. Spleen: Normal. No splenomegaly. Adrenal glands: Normal. No mass. Kidneys and ureters: Benign right lower renal pole fluid attenuating cyst. Stomach and bowel: Scattered diverticulosis without evidence of diverticulitis mild to moderate colonic stool burden. Appendix: No evidence of appendicitis. Intraperitoneal space: Unremarkable. No free air. No significant fluid collection. Vasculature: Severe calcified atherosclerotic disease of the abdominal aorta and its major branches. Multiple calcified pelvic phleboliths. Lymph nodes: Unremarkable. No enlarged lymph nodes. Urinary bladder: Unremarkable as visualized. Reproductive: Central dystrophic calcifications of the prostate gland. Bones/joints: Severe degenerative change of the visualized osseous structures. Soft tissues: Unremarkable. Other findings: Benign hyperdense right lower pole cysts (series 11, image 33; series 12, image 68). CT[facility] [id number] IMPRESSION: 1. Right middle lobe and basilar tree-in-bud nodularity and scattered micronodularity with associated atelectasis and small regions of terminal airway filling. Nonspecific, and may represent infection, aspiration, inflammation or combination of the former entities. Recommend re-evaluation after completed clinical treatment to assess for stability of the findings (6-8 weeks). 2. Additional lingular solid nodule. For patients at low risk (minimal or absent history of smoking and of other known risk factors), no routine follow-up is indicated. For patients at high risk (history of smoking or of other known risk factors), consider optional CT Chest at 12 months. IMPRESSION: 1. No acute intra-abdominal findings. 2. Additional nonacute findings as above. 3. Please see separately reported CT of the thorax for intrathoracic findings and impression. COMMENTS: Consistent with the [employer]'s Incidental Findings Committee white paper (J Am Juan Radiol 2018): Any incidental renal lesion less than 1 cm or classified as too small to characterize, or any incidental cystic renal lesion characterized as simple-appearing, is likely benign. No follow-up imaging is recommended for these lesions per consensus recommendations based on imaging criteria.
[2023-08-05 00:15] VITALS: BP 118/64; PULSE 92; RESP 16; O2SAT 92
[2023-08-05 00:56] VITALS: BP 98/63; PULSE 93; RESP 16; TEMP 38.6; O2SAT 92
[2023-08-05 02:22] VITALS: BP 110/67; PULSE 88; RESP 16; TEMP 37.8; O2SAT 91
--- NOTE | 2023-08-05 03:32 | ECG_ITS ---
[facility] Test Date: 2023-08-05 Pat Name: Sai Sutton Department: Room: Gender: Male Special Delivery Clerk: : 1940 Requested By: Bill Samuels Order Number: [id number] Hallie MD: Kobe Zaragoza M.D. Measurements Intervals [place] Rate: 80 P: 52 MS: 201 QRS: 69 QRSD: 149 T: 52 QT: 385 QTc: 445 Interpretive Statements SINUS RHYTHM RIGHT BUNDLE BRANCH BLOCK [120+ ms QRS DURATION, UPRIGHT V1, 40+ ms S IN I/aVL/V4/V5/V6] Compared to ECG 08/04/2023 23:59:20 T-wave abnormality no longer present Possible ischemia no longer present Electronically Signed On 08-08-2023 13:48:11 CDT by Kobe Zaragoza M.D. [id number]
[2023-08-05] MEDS: HYDROcodone-acetaminophen 5-325 mg Tablet 1 TAB PO (03:50)
[2023-08-05] MEDS: cefdinir 300 MG CAPSULE PO (03:50)
[2023-08-05 03:54] VITALS: BP 110/67; PULSE 88; RESP 16; TEMP 37.7; O2SAT 91
== END 2023-08-05 03:55 | disposition home or self-care (01) ==
PROVIDERS: Emergency Provider Emergency Medicine; PCP Family Medicine
DX: J44.0 Chronic obstructive pulmonary disease with (acute) lower respiratory infection (principal); J18.9 Pneumonia, unspecified organism; R50.9 Fever, unspecified; Z11.52 Encounter for screening for COVID-19; Z79.82 Long term (current) use of aspirin; Z87.891 Personal history of nicotine dependence; I10 Essential (primary) hypertension; E78.5 Hyperlipidemia, unspecified; Z95.1 Presence of aortocoronary bypass graft
CPT/HCPCS: 70450; 71045; 71250; 74176; 80053; 81003; 83605; 83735; 84145; 84443; 84484; 85025; 86140; 87040; 87486; 87581; 87633; 93005; 96360; 96361; 99285; J7030

== ENCOUNTER → 2023-09-10 13:58 | Outpatient (BNVA) | payer MEDICARE, OTHER, SELFPAY | PROVIDERS: PCP Family Medicine; Visit Provider Internal Medicine Critical Care Medicine | DX: J15.9 Unspecified bacterial pneumonia (principal); R06.09 Other forms of dyspnea; J18.9 Pneumonia, unspecified organism; J44.9 Chronic obstructive pulmonary disease, unspecified; J44.1 Chronic obstructive pulmonary disease with (acute) exacerbation; Z87.891 Personal history of nicotine dependence | CPT/HCPCS: 99214 ==

== ENCOUNTER 2023-10-01 10:53 | Outpatient (CLI) | payer MEDICARE, OTHER, SELFPAY ==
[2023-10-01 11:38] LABS: Immunoglobulin IGA 235 mg/dL (70-400); Immunoglobulin IGG 1122 mg/dL (700-1600); Immunoglobulin IGM 114 mg/dL (40-230)
[2023-10-02 18:29] LABS: Alternaria Alternata (M6) Ige <0.10 kU/L; Alternaria Class 0; Bermuda Class 0; Bermuda Grass (G2) Ige <0.10 kU/L; Cat Dander (E1) Ige 0.12 kU/L; Cat Dander Class 0/1; Common Ragweed (Short) (W1) Ig <0.10 kU/L; D. Farinae Class 0; Dermatophagoides Class 0; Dermatophagoides Farinae (D2) <0.10 kU/L; Dermatophagoides Pteronyssinus <0.10 kU/L; Dog Dander (E5) Ige 0.27 kU/L; Dog Dander Class 0/1; Elm (T8) Ige <0.10 kU/L; Elm Class 0; English Plantain (W9) Ige <0.10 kU/L; English Plantain Class 0; House Dust (Greer) (H1) Ige 0.12 kU/L; House Dust (Hollister- Stier) <0.10 kU/L; House Dust Class 0; House Dust Class 0/1; Immunoglobulin E 138 kU/L (<OR=114); Johnson Grass (G10) Ige <0.10 kU/L; Johnson Grass Cl 0; June Grass Class 0; June Grass(Kentucky Blue) (G8) <0.10 kU/L; Lamb'S Quarters (Goose Foot) <0.10 kU/L; Lamb'S Quarters Class 0; Maple (Box Elder) (T1) Ige <0.10 kU/L; Maple Class 0; Meadow Fescue (G4) Ige <0.10 kU/L; Meadow Fescue Class 0; Mucor Racemosus Class 0; Oak (T7) Ige <0.10 kU/L; Oak Class 0; Orchard Grass (Cocksfoot) (G3) <0.10 kU/L; Penicillium Class 0; Penicillium Notatum (M1) Ige <0.10 kU/L; Perennial Rye Grass (G5) Ige <0.10 kU/L; Perennial Rye Grass Class 0; Ragweeed Class 0; Rough Marsh Elder (W16) Ige <0.10 kU/L; Rough Marsh Elder Class 0; Sweet Vernal Class 0; Sweet Vernal Grass (G1) Ige <0.10 kU/L; Timothy Grass (G6) Ige <0.10 kU/L; Timothy Grass Class 0
[2023-10-03 17:44] LABS: Aspergillus Fumigatus, Igg Ab, 23.7 mg/L (<=102)
== END 2023-10-01 10:54 | disposition home or self-care (01) ==
PROVIDERS: PCP Family Medicine; Visit Provider Internal Medicine Critical Care Medicine
DX: R06.09 Other forms of dyspnea (principal); J15.9 Unspecified bacterial pneumonia; J18.9 Pneumonia, unspecified organism
CPT/HCPCS: 36415; 82784; 82785; 86003

== ENCOUNTER 2023-10-17 10:09 | Outpatient (CLI) | payer MEDICARE, OTHER, SELFPAY ==
[2023-10-17 11:10] LABS: Immunoglobulin IGA 214 mg/dL (70-400); Immunoglobulin IGG 1099 mg/dL (700-1600); Immunoglobulin IGM 109 mg/dL (40-230)
== END 2023-10-17 10:10 | disposition home or self-care (01) ==
LOC: LAB 10:11
PROVIDERS: PCP Family Medicine; Visit Provider Internal Medicine Critical Care Medicine
DX: I48.11 Longstanding persistent atrial fibrillation (principal); I25.10 Atherosclerotic heart disease of native coronary artery without angina pectoris; I10 Essential (primary) hypertension; Z87.891 Personal history of nicotine dependence
CPT/HCPCS: 36415; 82784; 99214

== ENCOUNTER 2023-11-03 09:59 | Oncology outpatient (recurring) (ONCR) | payer MEDICARE, OTHER, SELFPAY ==
[2023-11-03] MEDS: Benralizumab *no charge* 30 mg/ml syringe SUBCUT (10:43)
[2023-11-03 10:46] VITALS: BP 124/69; PULSE 59; RESP 16; TEMP 36.6; O2SAT 95
== END 2023-11-17 23:59 | disposition home or self-care (01) ==
PROVIDERS: PCP Family Medicine; Visit Provider Internal Medicine Medical Oncology
DX: J45.50 Severe persistent asthma, uncomplicated (principal)
CPT/HCPCS: 96372

== ENCOUNTER → 2023-11-05 14:43 | Outpatient (BNVA) | payer MEDICARE, OTHER, SELFPAY | PROVIDERS: PCP Family Medicine; Visit Provider Podiatrist Foot & Ankle Surgery | DX: L60.3 Nail dystrophy (principal); I73.9 Peripheral vascular disease, unspecified; R09.89 Other specified symptoms and signs involving the circulatory and respiratory systems; L84 Corns and callosities | CPT/HCPCS: 11055; 11721 ==

== ENCOUNTER → 2023-12-10 13:36 | Outpatient (BNVA) | payer MEDICARE, OTHER, SELFPAY | PROVIDERS: PCP Family Medicine; Visit Provider Nurse Practitioner Family | DX: L57.0 Actinic keratosis (principal); L72.0 Epidermal cyst; D17.0 Benign lipomatous neoplasm of skin and subcutaneous tissue of head, face and neck; D17.1 Benign lipomatous neoplasm of skin and subcutaneous tissue of trunk; D69.2 Other nonthrombocytopenic purpura; D36.12 Benign neoplasm of peripheral nerves and autonomic nervous system, upper limb, including shoulder; Z85.828 Personal history of other malignant neoplasm of skin | CPT/HCPCS: 17000; 99213 ==

== ENCOUNTER → 2023-12-11 15:39 | Outpatient (BNVA) | payer MEDICARE, OTHER, SELFPAY | PROVIDERS: PCP Family Medicine; Visit Provider Orthopaedic Surgery | DX: M54.9 Dorsalgia, unspecified (principal); M48.062 Spinal stenosis, lumbar region with neurogenic claudication | CPT/HCPCS: 72110; 99204 ==

== ENCOUNTER → 2023-12-22 13:50 | Outpatient (BNVA) | payer MEDICARE, OTHER, SELFPAY | PROVIDERS: PCP Family Medicine; Visit Provider Dermatology | DX: D48.5 Neoplasm of uncertain behavior of skin (principal); L53.8 Other specified erythematous conditions | CPT/HCPCS: 11423; 13132 ==

== ENCOUNTER 2024-01-09 09:25 | Outpatient (CLI) | payer MEDICARE, OTHER, SELFPAY ==
--- NOTE | 2024-01-09 09:27 | IR_ITS ---
WS: [id number] LUMBAR MYELOGRAM HISTORY: back pain COMPARISON: None available. FLUOROSCOPY TIME: 2min [phone] # of spot films: 2 Procedure, risks and complications were explained to the patient. Risks including bleeding, infection , headaches, allergic reaction and seizures. Consent has been obtained. With the patient in prone position the skin over the lumbar region is cleansed with ChloraPrep and an esthetized with lidocaine. 22-gauge spinal needle is inserted into the thecal sac at the appropriate level determined by fluoroscopy. Omnipaque 240; 12 ml is injected slowly under fluoroscopy with no co mplications. Needle bevel is perpendicular to the longitudinal fibers of the dura. Stylet is reinsert ed prior to removal of the needle. Patient tolerated the procedure well. Patient will proceed to CT f or further evaluation. Marked narrowing of the thecal sac at the L4-5 level and to a lesser extent L3-4. Stenosis will be be tter evaluated on the CT to follow. IR/IR myelogram sp lumbar [id number] IMPRESSION: 1. Status post lumbar myelogram. Marked degenerative spondylitic changes noted in the lumbar spine. 2. Severe stenosis noted at L4-5 and moderate at L3-4. Lumbar CT to follow.
--- NOTE | 2024-01-09 09:27 | CT_ITS ---
WS: [email or web address] CT MYELOGRAM LUMBAR SPINE HISTORY: M48.062 - Spinal stenosis, lumbar region with neurogenic ... TECHNIQUE: Contiguous 2.5 mm axial imaging performed from T12 through the mid sacral level. Bone and soft tissue windows reviewed. Sagittal and coronal reformats are submitted and reviewed. DLP: 1429.[address] scans at [facility] use at least one of these dose optimization techniques: automated e xposure control; mA and/or kV adjustment per patient size (includes targeted exams where dose is matc hed to clinical indication); or iterative reconstruction. COMPARISON: None available. Adequate opacification of the thecal sac with contrast. Subarachnoid contrast is intermittently dispe rsed due to the high grade areas of stenosis and scoliosis. T12 anterolisthesis by 3 mm. L3 and L4 retrolisthesis by 4 mm. Disc spaces are markedly narrowed thro ughout with vacuum disc phenomenon. Endplate vertebral body osteophytes. No fracture. T12-L1: Diffuse annular disc bulging with osteophytic ridging. Marked bilateral facet arthritis. Mode rate central and subarticular recess stenosis. L1-L2: Marked annular disc bulging with a central disc protrusion. Marked osteophytic ridging. Mild c entral, bilateral subarticular recess stenosis. L2-L3: Diffuse annular disc bulging and osteophytic ridging. Disc contacts the ventral thecal sac. Mi ld central and bilateral subarticular recess stenosis. Moderate facet arthritis. L3-L4: Retrolisthesis of L3 with osteophytic ridging and disc bulging. Large osteophytes extend into the foramina. Moderate to severe central with bilateral subarticular recess and mild bilateral forami nal stenosis. L4-L5: Diffuse osteophytic ridging with facet arthritis. Severe central, bilateral subarticular reces s and foraminal stenosis. L5-S1: Mild annular disc bulging. Small central disc protrusion. Moderate central with bilateral suba rticular recess and foraminal stenosis. Extensive atherosclerotic plaque within the abdominal aorta. No aneurysm. Plaque continues into the i liac arteries. Degenerative air in the SI joints. CT/CT lumbar spine w con [id number] IMPRESSION: 1. Advanced degenerative spondylosis throughout the lumbar spine. Multiple lev els of stenosis. Stenoses are due to a combination of osteophytic ridging, facet arthritis and d isc disease. 2. Most significant stenosis appears to be at the L4-5 level. Severe central w ith bilateral subarticular recess and foraminal stenosis. 3. L5-S1: Moderate central with bilateral subarticular recess and foraminal st enosis. 4. L3-4: Moderate to severe central with bilateral subarticular recess and mil d foraminal stenosis. 5. L1-2 and L2-3: Mild central and bilateral subarticular recess stenosis.
[2024-01-09] MEDS: iohexol 240 mg/mL 50 mL Btl 20 ML INTRATHECA (12:40)
== END 2024-01-09 09:26 | disposition home or self-care (01) ==
LOC: RAD 09:26
PROVIDERS: PCP Family Medicine; Visit Provider Orthopaedic Surgery
DX: M48.062 Spinal stenosis, lumbar region with neurogenic claudication (principal); M51.34 Other intervertebral disc degeneration, thoracic region; M25.78 Osteophyte, vertebrae; M46.94 Unspecified inflammatory spondylopathy, thoracic region; M47.896 Other spondylosis, lumbar region; M99.63 Osseous and subluxation stenosis of intervertebral foramina of lumbar region
CPT/HCPCS: 62304; 72132

== ENCOUNTER → 2024-01-29 13:22 | Outpatient (BNVA) | payer MEDICARE, OTHER, SELFPAY | PROVIDERS: PCP Family Medicine; Visit Provider Orthopaedic Surgery | DX: M48.062 Spinal stenosis, lumbar region with neurogenic claudication (principal) | CPT/HCPCS: 99214 ==

== ENCOUNTER → 2024-02-04 14:30 | Outpatient (BNVA) | payer MEDICARE, OTHER, SELFPAY | PROVIDERS: PCP Family Medicine; Visit Provider Podiatrist Foot & Ankle Surgery | DX: L60.3 Nail dystrophy (principal); I73.9 Peripheral vascular disease, unspecified; R09.89 Other specified symptoms and signs involving the circulatory and respiratory systems; L84 Corns and callosities | CPT/HCPCS: 11055; 11721 ==

== ENCOUNTER → 2024-02-24 13:49 | Outpatient (BNVA) | payer MEDICARE, OTHER, SELFPAY | PROVIDERS: PCP Family Medicine; Visit Provider Anesthesiology Pain Medicine | DX: M48.062 Spinal stenosis, lumbar region with neurogenic claudication (principal) | CPT/HCPCS: 99205 ==

== ENCOUNTER → 2024-03-09 13:25 | Outpatient (BNVA) | payer MEDICARE, OTHER, SELFPAY | PROVIDERS: PCP Family Medicine; Visit Provider Anesthesiology Pain Medicine | DX: M47.816 Spondylosis without myelopathy or radiculopathy, lumbar region (principal); M48.062 Spinal stenosis, lumbar region with neurogenic claudication | CPT/HCPCS: 64493; 64494; 64495; J3490 ==

== ENCOUNTER → 2024-03-23 10:18 | Outpatient (BNVA) | payer MEDICARE, OTHER, SELFPAY | PROVIDERS: PCP Family Medicine; Visit Provider Anesthesiology Pain Medicine | DX: M48.062 Spinal stenosis, lumbar region with neurogenic claudication (principal) | CPT/HCPCS: 99214 ==

== ENCOUNTER → 2024-04-12 13:02 | Outpatient (BNVA) | payer MEDICARE, OTHER, SELFPAY | PROVIDERS: PCP Family Medicine; Visit Provider Anesthesiology Pain Medicine | DX: M48.062 Spinal stenosis, lumbar region with neurogenic claudication (principal); Z87.891 Personal history of nicotine dependence | CPT/HCPCS: 99214 ==

== ENCOUNTER 2024-04-24 22:44 | Emergency (ER) | payer MEDICARE, OTHER, SELFPAY ==
--- NOTE | 2024-04-24 22:50 | ECG_ITS ---
[facility] Test Date: 2024-04-24 Pat Name: Sai Sutton Department: Room: Gender: Male Medicine Man: : 1940 Requested By: Tay Caban Order Number: [id number] Hallie MD: KAITLIN PIPER Measurements Intervals Dawson Rate: 69 P: 55 GA: 203 QRS: 50 QRSD: 166 T: 23 QT: 438 QTc: 469 Interpretive Statements SINUS RHYTHM WITH FREQUENT VENTRICULAR PREMATURE COMPLEXES RIGHT BUNDLE BRANCH BLOCK [120+ ms QRS DURATION, UPRIGHT V1, 40+ ms S IN I/aVL/V4/V5/V6] Compared to ECG 08/05/2023 03:32:30 Ventricular premature complex(es) now present Electronically Signed On 04-26-2024 22:17:24 CDT by KAITLIN PIPER [id number]
[2024-04-24 23:03] VITALS: BP 130/56; PULSE 68; RESP 18; TEMP 36.6; O2SAT 97; BMI 43.8
--- NOTE | 2024-04-24 23:03 | XRR_ITS ---
PROCEDURE INFORMATION: Exam: XR Chest Exam date and time: 04/24/2024 11:08 PM Age: 84 years old Clinical indication: Chest pressure; Prior surgery; Surgery date: 6+ months; Surgery type: Cabg 2011; Chest pain; Cough; SOB upon exertion TECHNIQUE: Imaging protocol: Radiologic exam of the chest. Views: 1 view. COMPARISON: [place] [id number] 08/05/2023 12:37 AM FINDINGS: Lungs: Bibasilar atelectasis. Pleural spaces: Unremarkable. Heart/Mediastinum: Mildly enlarged pericardial silhouette. Bones/joints: Prior median sternotomy. XR/XR chest 1V portable [id number] IMPRESSION: 1. Bibasilar atelectasis. 2. Mildly enlarged pericardial silhouette.
[2024-04-24 23:11] VITALS: BP 130/56; PULSE 61; RESP 13; O2SAT 97
[2024-04-24 23:22] LABS: Basophils % 0.1 %; Hematocrit 38.8 % (37-53); Lymphocytes # 2.2 10^3/uL (0.8-4.8); Lymphocytes % 29.9 %; Mean Corpuscular HGB Conc 32.7 g/dL (30-55); Mean Corpuscular Hemoglobin 31.9 pg (27-33); Mean Corpuscular Volume 97.5 fl (82-101); Mean Platelet Volume 9.8 fL (7.4-10.4); Monocytes # 0.8 10^3/uL (0.2-0.9); Monocytes % 10.2 %; Neutrophils # 4.36 10^3/uL (1.8-7.7); Neutrophils % 59.7 %; Nucleated Red Blood Cells % 0 %; Platelet Count 171 10^3/cmm (157-399); Red Blood Count 3.98 10^6/uL (3.85-5.65); Red Cell Distribution Width 13.5 % (12.1-15.1); White Blood Count 7.32 10^3/uL (3.29-11.43)
[2024-04-24 23:30] VITALS: BP 130/56; PULSE 60; RESP 19; O2SAT 96
[2024-04-24 23:39] LABS: Troponin(5th) Baseline 38 ng/L (0-15)
[2024-04-24 23:40] LABS: Alanine Aminotransferase 20 U/L (0-41); Albumin Level 3.9 g/dL (3.5-5.2); Alkaline Phosphatase 110 U/L (40-130); Aspartate Amino Transferase 25 U/L (0-40); Blood Urea Nitrogen 11 mg/dL (8-23); Calcium 9.3 mg/dL (8.5-10.5); Carbon Dioxide 28 mmol/L (22-29); Chloride 99 mmol/L (98-107); Creatinine Clr Calc Pharmacy 89.5201; Globulin 2.5 g/dL (1.3-4.6); Glucose 97 mg/dL (65-115); Lipase 19 U/L (13-60); Osmolality Calculated 285 mOsm/kg (285-295); Sodium 138 mmol/L (136-145); Total Bilirubin 0.2 mg/dL (0.15-1.2); Total Protein 6.4 g/dL (6.6-8.7)
[2024-04-24 23:43] LABS: Anion Gap 14.8 (5-19); Potassium 3.8 mmol/L (3.5-5.1)
--- NOTE | 2024-04-24 23:44 | W.ED.CHESTPA ---
HPI - Chest Pain General: Chief Complaint: Chest Pain Stated Complaint: Chest pain Time Seen by Provider: 04/24/24 23:07 History of Present Illness: 84-year-old male gentleman with a history of coronary disease. He had bypass surgery in 2011. No interventions since. He was at home, putting the dogs out on a zip line, and began to get chest discomfort. It is essentially resolved at this point. He states that he has a mild funny feeling on the right side of his chest. No shortness of breath. No increased leg swelling. No change in medications. No recent illness otherwise Related Data Home Medications ?Medication ?Instructions ?Recorded ?Confirmed alprazolam 0.5 mg tablet 0.5 mg PO BID PRN unknown 06/01/19 04/12/24 aspirin 325 mg tablet,delayed 325 mg PO DAILY 06/01/19 04/12/24 release atorvastatin 40 mg tablet 40 mg PO DAILY 06/01/19 04/12/24 loratadine 10 mg tablet 10 mg PO DAILY 06/01/19 04/12/24 montelukast 10 mg tablet 10 mg PO DAILY 06/01/19 04/12/24 (Singulair) multivitamin 1 tab PO DAILY 06/01/19 04/12/24 omeprazole 20 mg tablet,delayed 40 mg PO DAILY 06/01/19 04/12/24 release saw palmetto 450 mg capsule 450 mg PO BID 06/01/19 04/12/24 venlafaxine 150 mg tablet,extended 150 mg PO DAILY 06/01/19 04/12/24 release 24 hr furosemide 40 mg tablet 80 mg PO DAILY 11/09/20 04/12/24 levothyroxine 88 mcg tablet 88 mcg PO DAILY 05/09/21 04/12/24 (Euthyrox) venlafaxine 75 mg capsule,extended 75 mg PO .hs 05/09/21 04/12/24 release 24 hr prednisone 10 mg tablet 5 mg PO DAILY 03/09/24 04/12/24 Previous Rx's ?Medication ?Instructions ?Recorded nitroglycerin 0.4 mg sublingual 0.4 mg sublingual Q5M PRN chest 08/09/19 tablet (Nitrostat) pain #30 tabs albuterol sulfate 2.5 mg/3 mL 2.5 mg (3 mL) inhalation Q6H PRN 12/13/19 (0.083 %) solution for nebulization shortness of breath or wheezing #90 mL albuterol sulfate 90 mcg/actuation 2 inh inhalation Q4H PRN shortness 12/13/19 aerosol inhaler of breath or wheezing #18 grams metoprolol tartrate 50 mg tablet See Rx Instructions .Route 06/30/23 .COMPLEX #180 tabs budesonide 160 mcg-glycopyr 9 2 inh inhalation BID #10.7 grams 10/07/23 mcg-formot 4.8 mcg/actuation HFA inhaler (Breztri Aerosphere) azithromycin 250 mg tablet See Rx Instructions PO .COMPLEX #6 10/17/23 tabs benralizumab 30 mg/mL subcutaneous 30 mg SUBCUT .q 8 weeks #1 mL 10/17/23 auto-injector (Fasenra Pen) benralizumab 30 mg/mL subcutaneous 30 mg SUBCUT Q28D Loading Dose 3 10/17/23 auto-injector (Fasenra Pen) doses #1 mL tizanidine 4 mg capsule 4 mg PO BID PRN muscle spasticity 03/23/24 #60 caps Allergies Allergy/AdvReac Type Severity Reaction Status Date / Time doxycycline Allergy Unknown unknown Verified 04/12/24 13:16 hydromorphone (From Dilaudid) Allergy Unknown unknown Verified 04/12/24 13:16 Iodinated Contrast Media Allergy Unknown unknown Verified 04/12/24 13:16 levofloxacin (From Levaquin) Allergy Unknown unknown Verified 04/12/24 13:16 lisinopril Allergy Unknown unknown Verified 04/12/24 13:16 Sulfa (Sulfonamide Allergy Unknown unknown Verified 04/12/24 13:16 Antibiotics) [facility] PFSH: Medical History Hx of blood clots Hypertension Hyperlipidemia Asthma COPD (chronic obstructive pulmonary disease) ASHD (arteriosclerotic heart disease) Patient is known to have coronary artery disease and coronary artery bypass surgery. Atrial fibrillation Patient is known to have easy bruising and bleeding. So he is not able to take the oral anticoagulation. He has been taking the aspirin. Carpal tunnel syndrome Dermatitis Surgical History Hx of bilateral cataract extraction Hx of tonsillectomy H/O hernia repair Hx of CABG History of removal of cyst Family History Father CAD (coronary artery disease) Cancer Grandfather Lung disease Cancer Mother Lung disease Denies family history of Diabetes Clotting disorder Dementia Chronic kidney disease (CKD) Suicide Anesthesia complication Bleeding disorder Stroke Social History Smoking and tobacco/nicotine status: never used tobacco/nicotine Quit status (tobacco/nicotine): has quit using Year quit tobacco: 1974 Former quit date comment: 1 ppd X 11 years, now uses smokeless Alcohol intake: never Substance/Drug Use: never Physical Exam Const: COMMON NORMALS: no acute distress GENERAL APPEARANCE: cooperative and frail appearing (Mildly); not ill appearing HENMT: COMMON NORMALS: normocephalic, atraumatic and Normal external nose present HEAD & SCALP: normocephalic and atraumatic FACE & SINUS: normal facial exam and face symmetric NOSE: Normal external nose present Eye: COMMON NORMALS: Equal, round and reactive pupils present and EOMs intact bilaterally PUPIL: Yes Equal, round and reactive pupils present Neck/C-Spine: GENERAL: Yes trachea midline Chest: CHEST: Yes Symmetrical chest wall rise Resp: COMMON NORMALS: normal respiratory effort, No retractions, No use of accessory muscles and clear to auscultation bilaterally AUSCULTATION: clear to auscultation bilaterally Cardio: RATE: bradycardic RHYTHM: abnormal rhythm irregularly irregular GI: COMMON NORMALS: Normal to inspection, nondistended, normoactive bowel sounds present Extremity: COMMON NORMALS: no pedal edema Neuro: QUE COMA SCALE: document GCS findings Bristow coma scale eye opening: Spontaneous Bristow coma scale verbal response: Orientated Bristow coma scale motor response: Obey commands Que coma scale total score: 15 SENSORY EXAM: Yes extremities (intact) Psych: COMMON NORMALS: speech normal SPEECH: Yes normal speech Skin: COMMON NORMALS: no rashes or lesions noted GENERAL SKIN EXAM: no rashes or lesions noted Course Vital Signs: Vital signs: Vital Signs Temperature 97.8 F 04/24/24 23:03 Pulse Rate 66 04/25/24 01:30 Respiratory Rate 19 H 04/24/24 23:30 Blood Pressure 142/81 04/25/24 01:30 Pulse Oximetry 95 04/25/24 01:30 MDM - Chest Pain Medical Decision Making EKG shows a sinus bradycardia with frequent PVCs. No acute ST wave changes. On the monitor, he throws frequent PVCs with pauses following. CBC and BMP are normal. Chest x-ray shows bibasilar atelectasis. His baseline troponin is 38. Creatinine is 0.8. 2-hour delta troponin is -2. He will be allowed discharge home. Lab Data 04/24/24 23:00 04/24/24 23:00 Radiology Impressions Chest X-Ray 04/24/24 23:03 IMPRESSION: 1. Bibasilar atelectasis. 2. Mildly enlarged pericardial silhouette. Laboratory Results WBC 7.32 10^3/uL (3.29-11.43) 04/24/24 23:00 RBC 3.98 10^6/uL (3.85-5.65) 04/24/24 23:00 Hgb 12.70 g/dL (11.27-16.99) 04/24/24 23:00 Hct 38.8 % (37-53) 04/24/24 23:00 MCV 97.5 fl (82-101) 04/24/24 23:00 MCH 31.9 pg (27-33) 04/24/24 23:00 MCHC 32.7 g/dL (30-55) 04/24/24 23:00 RDW 13.5 % (12.1-15.1) 04/24/24 23:00 Plt Count 171 10^3/cmm (157-399) 04/24/24 23:00 MPV 9.8 fL (7.4-10.4) 04/24/24 23:00 Neut % (Auto) 59.7 % 04/24/24 23:00 Lymph % (Auto) 29.9 % 04/24/24 23:00 Duval % (Auto) 10.2 % 04/24/24 23:00 Eos % (Auto) 0.0 % 04/24/24 23:00 Baso % (Auto) 0.1 % 04/24/24 23:00 Neut # (Auto) 4.36 10^3/uL (1.8-7.7) 04/24/24 23:00 Lymph # (Auto) 2.2 10^3/uL (0.8-4.8) 04/24/24 23:00 Duval # (Auto) 0.8 10^3/uL (0.2-0.9) 04/24/24 23:00 Eos # (Auto) 0.0 10^3/uL (0.0-0.8) 04/24/24 23:00 Baso # (Auto) 0.0 10^3/uL (0.0-0.1) 04/24/24 23:00 Nucleated RBC % (auto) 0 % 04/24/24 23:00 Nucleated RBCs # 0.0 /100WBC 04/24/24 23:00 Sodium 138 mmol/L (136-145) 04/24/24 23:00 Potassium 3.8 mmol/L (3.5-5.1) 04/24/24 23:00 Chloride 99 mmol/L (98-107) 04/24/24 23:00 Carbon Dioxide 28 mmol/L (22-29) 04/24/24 23:00 Anion Gap 14.8 (5-19) 04/24/24 23:00 BUN 11 mg/dL (8-23) 04/24/24 23:00 Creatinine 0.8 mg/dL (0.7-1.2) 04/24/24 23:00 GFR Calculation Not Reportable 04/24/24 23:00 Glucose 97 mg/dL (65-115) 04/24/24 23:00 Calculated Osmolality 285 mOsm/kg (285-295) 04/24/24 23:00 Calcium 9.3 mg/dL (8.5-10.5) 04/24/24 23:00 Total Bilirubin 0.2 mg/dL (0.15-1.2) 04/24/24 23:00 AST 25 U/L (0-40) 04/24/24 23:00 ALT 20 U/L (0-41) 04/24/24 23:00 Alkaline Phosphatase 110 U/L (40-130) 04/24/24 23:00 Troponin T Baseline 38 ng/L (0-15) H 04/24/24 23:00 Troponin T 120 Minute 35.87 ng/L (0-15) H 04/25/24 00:59 Delta Troponin T -2.13 ABS# (0-10) L 04/25/24 00:59 Total Protein 6.4 g/dL (6.6-8.7) L 04/24/24 23:00 Albumin 3.9 g/dL (3.5-5.2) 04/24/24 23:00 Globulin 2.5 g/dL (1.3-4.6) 04/24/24 23:00 Lipase 19 U/L (13-60) 04/24/24 23:00 All radiology interpretation(s) finalized by discharge Discharge Plan Discharge Patient Disposition: Home Clinical Impression: Chest pain Condition: Stable Prescriptions: No Action montelukast [Singulair] 10 mg tablet 10 mg PO DAILY alprazolam 0.5 mg tablet 0.5 mg PO BID PRN (Reason: unknown) multivitamin Tablet 1 tab PO DAILY saw palmetto 450 mg capsule 450 mg PO BID aspirin 325 mg tablet,delayed release (DR/EC) 325 mg PO DAILY atorvastatin 40 mg tablet 40 mg PO DAILY loratadine 10 mg tablet 10 mg PO DAILY omeprazole 20 mg tablet,delayed release (DR/EC) 40 mg PO DAILY venlafaxine 150 mg tablet extended release 24hr 150 mg PO DAILY Rx Instructions: TAKES IN THE PM, takes with 75mg furosemide 40 mg tablet 80 mg PO DAILY levothyroxine [Euthyrox] 88 mcg tablet 88 mcg PO DAILY Fasenra Pen 30 mg/mL auto-injector 30 mg SUBCUT Q28D Qty: 1 2RF Rx Instructions: 1 ml SQ q 4 weeks X 3 doses, then 1 ml q 8 weeks thereafter Fasenra Pen 30 mg/mL auto-injector 30 mg SUBCUT .q 8 weeks Qty: 1 5RF Rx Instructions: Maintenance dose azithromycin 250 mg tablet See Rx Instructions PO .COMPLEX Qty: 6 0RF Rx Instructions: For 250 mg dose pack: take 500 mg today (day 1), then 250 mg for 4 days (days 2-5) PO prednisone 10 mg tablet 5 mg PO DAILY Rx Instructions: 40 mg X 5 days / 30 mg x 5 days/ 20 mg x 5 days / 10 mg x 5 days/ 5 mg x 90 tizanidine 4 mg capsule 4 mg PO BID PRN (Reason: muscle spasticity) Qty: 60 0RF nitroglycerin [Nitrostat] 0.4 mg tablet, sublingual 0.4 mg SUBLINGUAL Q5M PRN (Reason: chest pain) Qty: 30 3RF metoprolol tartrate 50 mg tablet See Rx Instructions .ROUTE .COMPLEX Qty: 180 3RF Dose Instruction: Take 1 tablet by mouth twice daily Rx Instructions: Take 1 tablet by mouth twice daily Mandeepi Aerosphere 160-9-4.8 mcg/actuation HFA aerosol inhaler 2 inh inhalation BID Qty: 10.7 6RF albuterol sulfate 90 mcg/actuation HFA aerosol inhaler 2 inh INHALATION Q4H PRN (Reason: shortness of breath or wheezing) Qty: 18 0RF albuterol sulfate 2.5 mg /3 mL (0.083 %) solution for nebulization 2.5 mg INHALATION Q6H PRN (Reason: shortness of breath or wheezing) Qty: 90 0RF venlafaxine 75 mg capsule,extended release 24hr 75 mg PO .hs Discharge Orders: Discharge ED (Routine); Ordered 04/25/24 Ordered By: Sean Bradley Referrals: Alix Romero MD [Primary Care Provider] - 1-3 days Patient Instructions: Chest Pain (ED), Opioid Safety, Pain Management Activity Restrictions/Additional Instructions: Return for repeated episodes of chest discomfort, shortness of breath, fever, other concerning symptoms. Call your doctor on Friday for a follow-up appointment. Print Language: Telugu Coding Level of Care Code ED Hotel Security Officer for Alfredo Hardy
[2024-04-25] VITALS: BP 132/60; PULSE 66; O2SAT 93
[2024-04-25 00:30] VITALS: BP 142/60; PULSE 62; O2SAT 90
[2024-04-25 01:00] VITALS: BP 140/66; PULSE 61; O2SAT 94
[2024-04-25 01:22] LABS: Troponin 5 2HR 35.87 ng/L (0-15)
[2024-04-25 01:27] LABS: Troponin 5 2HR Delta -2.13 ABS# (0-10)
[2024-04-25 01:30] VITALS: BP 142/81; PULSE 66; O2SAT 95
[2024-04-25 03:25] VITALS: BP 149/76; PULSE 66; O2SAT 94
== END 2024-04-25 03:28 | disposition home or self-care (01) ==
PROVIDERS: Nurse Practitioner Family; Emergency Provider Emergency Medicine; PCP Family Medicine
DX: R07.9 Chest pain, unspecified (principal); Z79.82 Long term (current) use of aspirin; Z87.891 Personal history of nicotine dependence; E78.5 Hyperlipidemia, unspecified; J44.9 Chronic obstructive pulmonary disease, unspecified; Z95.1 Presence of aortocoronary bypass graft
CPT/HCPCS: 36415; 71045; 80053; 83690; 84484; 85025; 93005; 99285

== ENCOUNTER 2024-05-13 09:16 | Emergency (ER) | payer MEDICARE, OTHER, SELFPAY ==
[2024-05-13 09:29] VITALS: BP 154/70; PULSE 73; RESP 17; TEMP 36.8; O2SAT 96; BMI 40.7
--- NOTE | 2024-05-13 10:01 | XR_ITS ---
WS: [email or web address] Exam: [place] [id number] Date/Time of Exam: 05/13/2024 10:01 AM Reason For Exam: fall No fracture identified. Soft tissues are unremarkable. Degenerative changes at the elbow and shoulder. XR/[place] [id number] IMPRESSION: 1. No fracture or other significant finding.
--- NOTE | 2024-05-13 10:01 | XR_ITS ---
WS: [email or web address] Exam: XR shoulder LT min 2V* [id number] Date/Time of Exam: 05/13/2024 10:01 AM Reason For Exam: fall No acute fracture. High riding humeral head articulates with the acromion suggesting longstanding rotator cuff tear. There is arthrosis and bone spurring at the AC joint. Mild degenerative change at the glenohumeral joint. XR/XR shoulder LT min 2V* [id number] IMPRESSION: . No fracture. 2. Degenerative changes. Findings also suggest the possibility of a longstandin g rotator cuff tear.
[2024-05-13 11:22] VITALS: PULSE 70; RESP 18; O2SAT 97
--- NOTE | 2024-05-13 11:30 | W.ED.EXTPRO ---
HPI - Extremity Problem General: Chief complaint: Extremity Injury, Upper Stated complaint: left shoulder pain Time Seen by Provider: 05/13/24 11:23 Source: patient Mode of arrival: ambulatory Limitations: no limitations History of Present Illness: 84-year-old male states that he is trying to get his wheelchair yet last night and he fell. He states he did hit his left shoulder but having left shoulder pain since then. He states he scraped his arm on a brick wall has skin tear to his elbow and his left forearm. Denies any his head denies any headache denies any pain elsewhere besides the shoulder Associated symptoms: Deny chest pain, fever(s) or rash Related Data Home Medications ?Medication ?Instructions ?Recorded ?Confirmed alprazolam 0.5 mg tablet 0.5 mg PO BID PRN unknown 06/01/19 04/12/24 aspirin 325 mg tablet,delayed 325 mg PO DAILY 06/01/19 04/12/24 release atorvastatin 40 mg tablet 40 mg PO DAILY 06/01/19 04/12/24 loratadine 10 mg tablet 10 mg PO DAILY 06/01/19 04/12/24 montelukast 10 mg tablet 10 mg PO DAILY 06/01/19 04/12/24 (Singulair) multivitamin 1 tab PO DAILY 06/01/19 04/12/24 omeprazole 20 mg tablet,delayed 40 mg PO DAILY 06/01/19 04/12/24 release saw palmetto 450 mg capsule 450 mg PO BID 06/01/19 04/12/24 venlafaxine 150 mg tablet,extended 150 mg PO DAILY 06/01/19 04/12/24 release 24 hr furosemide 40 mg tablet 80 mg PO DAILY 11/09/20 04/12/24 levothyroxine 88 mcg tablet 88 mcg PO DAILY 05/09/21 04/12/24 (Euthyrox) venlafaxine 75 mg capsule,extended 75 mg PO .hs 05/09/21 04/12/24 release 24 hr prednisone 10 mg tablet 5 mg PO DAILY 03/09/24 04/12/24 Previous Rx's ?Medication ?Instructions ?Recorded nitroglycerin 0.4 mg sublingual 0.4 mg sublingual Q5M PRN chest 08/09/19 tablet (Nitrostat) pain #30 tabs albuterol sulfate 2.5 mg/3 mL 2.5 mg (3 mL) inhalation Q6H PRN 12/13/19 (0.083 %) solution for nebulization shortness of breath or wheezing #90 mL albuterol sulfate 90 mcg/actuation 2 inh inhalation Q4H PRN shortness 12/13/19 aerosol inhaler of breath or wheezing #18 grams metoprolol tartrate 50 mg tablet See Rx Instructions .Route 06/30/23 .COMPLEX #180 tabs budesonide 160 mcg-glycopyr 9 2 inh inhalation BID #10.7 grams 10/07/23 mcg-formot 4.8 mcg/actuation HFA inhaler (Breztri Aerosphere) azithromycin 250 mg tablet See Rx Instructions PO .COMPLEX #6 10/17/23 tabs benralizumab 30 mg/mL subcutaneous 30 mg SUBCUT .q 8 weeks #1 mL 10/17/23 auto-injector (Fasenra Pen) benralizumab 30 mg/mL subcutaneous 30 mg SUBCUT Q28D Loading Dose 3 10/17/23 auto-injector (Fasenra Pen) doses #1 mL tizanidine 4 mg capsule 4 mg PO BID PRN muscle spasticity 03/23/24 #60 caps Allergies Allergy/AdvReac Type Severity Reaction Status Date / Time doxycycline Allergy Unknown unknown Verified 04/12/24 13:16 hydromorphone (From Dilaudid) Allergy Unknown unknown Verified 04/12/24 13:16 Iodinated Contrast Media Allergy Unknown unknown Verified 04/12/24 13:16 levofloxacin (From Levaquin) Allergy Unknown unknown Verified 04/12/24 13:16 lisinopril Allergy Unknown unknown Verified 04/12/24 13:16 Sulfa (Sulfonamide Allergy Unknown unknown Verified 04/12/24 13:16 Antibiotics) Review of Systems Const: Denies: fever(s), chills, body aches or change in appetite ENMT: Denies: throat pain or dental pain Card: Denies: chest pain Resp: Denies: dyspnea GI: Denies: abdominal pain, nausea, vomiting or diarrhea : Denies: dysuria Musc: Reports: extremity pain; Denies: neck pain or back pain Skin/Breast: Denies: rash Neuro: Denies: headache(s) PFSH ED PFSH: Medical History Hx of blood clots Hypertension Hyperlipidemia Asthma COPD (chronic obstructive pulmonary disease) ASHD (arteriosclerotic heart disease) Patient is known to have coronary artery disease and coronary artery bypass surgery. Atrial fibrillation Patient is known to have easy bruising and bleeding. So he is not able to take the oral anticoagulation. He has been taking the aspirin. Carpal tunnel syndrome Dermatitis Surgical History Hx of bilateral cataract extraction Hx of tonsillectomy H/O hernia repair Hx of CABG History of removal of cyst Family History Father CAD (coronary artery disease) Cancer Grandfather Lung disease Cancer Mother Lung disease Denies family history of Diabetes Clotting disorder Dementia Chronic kidney disease (CKD) Suicide Anesthesia complication Bleeding disorder Stroke Social History Smoking and tobacco/nicotine status: never used tobacco/nicotine Quit status (tobacco/nicotine): has quit using Year quit tobacco: 1974 Former quit date comment: 1 ppd X 11 years, now uses smokeless Alcohol intake: never Substance/Drug Use: never Physical Exam Const: COMMON NORMALS: no acute distress, patient oriented x3 and healthy appearing HENMT: COMMON NORMALS: normocephalic and atraumatic HEAD & SCALP: normocephalic and atraumatic Eye: COMMON NORMALS: conjunctivae normal CONJUNCTIVA: Yes conjunctivae normal Neck/C-Spine: COMMON NORMALS: full ROM and supple Chest: COMMONS NORMALS: normal inspection of the chest Resp: COMMON NORMALS: normal respiratory effort Cardio: COMMON NORMALS: regular rate RATE: regular rate Extremity: NARRATIVE EXTREMITY EXAM: Tenderness to left shoulder has pain with range of motion Neuro: COMMON NORMALS: patient oriented x3, moves all extremities and no focal motor deficits Psych: COMMON NORMALS: mental status grossly normal, Normal thought process present and cooperative THOUGHT PROCESS: Normal thought process present Skin: NARRATIVE SKIN EXAM: Skin tear noted left elbow along with left forearm superficial does not require sutures Course Vital Signs: Vital signs: Vital Signs Temperature 98.2 F 05/13/24 09:29 Pulse Rate 70 05/13/24 11:22 Respiratory Rate 18 05/13/24 11:22 Blood Pressure 154/70 05/13/24 09:29 Pulse Oximetry 97 03/27/25 11:22 Oxygen Delivery Me thod Room Air 05/13/24 11:22 MDM - Extremity (Nontraumatic) Medical Decision Making Patient presents here with left shoulder injury x-ray showed no fracture he has skin tears well does not need sutures will place him in sling will get him follow-up with orthopedics. Medical Records I reviewed the patient's medical records. Lab Data Radiology Impressions Humerus X-Ray 05/13/24 10:01 IMPRESSION: 1. No fracture or other significant finding. Shoulder X-Ray 05/13/24 10:01 IMPRESSION: . No fracture. 2. Degenerative changes. Findings also suggest the possibility of a longstanding rotator cuff tear. All radiology interpretation(s) finalized by discharge Discharge Plan Discharge Patient Disposition: Home Clinical Impression: Left shoulder strain, Skin tear Condition: Stable Prescriptions: No Action montelukast [Singulair] 10 mg tablet 10 mg PO DAILY alprazolam 0.5 mg tablet 0.5 mg PO BID PRN (Reason: unknown) multivitamin Tablet 1 tab PO DAILY saw palmetto 450 mg capsule 450 mg PO BID aspirin 325 mg tablet,delayed release (DR/EC) 325 mg PO DAILY atorvastatin 40 mg tablet 40 mg PO DAILY loratadine 10 mg tablet 10 mg PO DAILY omeprazole 20 mg tablet,delayed release (DR/EC) 40 mg PO DAILY venlafaxine 150 mg tablet extended release 24hr 150 mg PO DAILY Rx Instructions: TAKES IN THE PM, takes with 75mg furosemide 40 mg tablet 80 mg PO DAILY levothyroxine [Euthyrox] 88 mcg tablet 88 mcg PO DAILY Fasenra Pen 30 mg/mL auto-injector 30 mg SUBCUT Q28D Qty: 1 2RF Rx Instructions: 1 ml SQ q 4 weeks X 3 doses, then 1 ml q 8 weeks thereafter Fasenra Pen 30 mg/mL auto-injector 30 mg SUBCUT .q 8 weeks Qty: 1 5RF Rx Instructions: Maintenance dose azithromycin 250 mg tablet See Rx Instructions PO .COMPLEX Qty: 6 0RF Rx Instructions: For 250 mg dose pack: take 500 mg today (day 1), then 250 mg for 4 days (days 2-5) PO prednisone 10 mg tablet 5 mg PO DAILY Rx Instructions: 40 mg X 5 days / 30 mg x 5 days/ 20 mg x 5 days / 10 mg x 5 days/ 5 mg x 90 tizanidine 4 mg capsule 4 mg PO BID PRN (Reason: muscle spasticity) Qty: 60 0RF nitroglycerin [Nitrostat] 0.4 mg tablet, sublingual 0.4 mg SUBLINGUAL Q5M PRN (Reason: chest pain) Qty: 30 3RF metoprolol tartrate 50 mg tablet See Rx Instructions .ROUTE .COMPLEX Qty: 180 3RF Dose Instruction: Take 1 tablet by mouth twice daily Rx Instructions: Take 1 tablet by mouth twice daily Breztri Aerosphere 160-9-4.8 mcg/actuation HFA aerosol inhaler 2 inh inhalation BID Qty: 10.7 6RF albuterol sulfate 90 mcg/actuation HFA aerosol inhaler 2 inh INHALATION Q4H PRN (Reason: shortness of breath or wheezing) Qty: 18 0RF albuterol sulfate 2.5 mg /3 mL (0.083 %) solution for nebulization 2.5 mg INHALATION Q6H PRN (Reason: shortness of breath or wheezing) Qty: 90 0RF venlafaxine 75 mg capsule,extended release 24hr 75 mg PO .hs Discharge Orders: Discharge ED (Routine); Ordered 05/13/24 Ordered By: Tyson Ortiz Referrals: Deejay Alexander DO [Physician] - 4-7 days Alix Romero MD [Primary Care Provider] - Discharge Diet: Advance as tolerated Discharge Activity: Resume usual activity Patient Instructions: Shoulder Pain (ED) Print Language: Icelandic Coding Level of Care Code ED [facility] [employer] for Alfredo Hardy
--- NOTE | 2024-05-13 14:00 | DCPLANNER ---
messaged ortho for er f/u
== END 2024-05-13 11:39 | disposition home or self-care (01) ==
PROVIDERS: Emergency Provider Emergency Medicine; PCP Family Medicine
DX: S46.912A Strain of unspecified muscle, fascia and tendon at shoulder and upper arm level, left arm, initial encounter (principal); Z95.1 Presence of aortocoronary bypass graft; J44.9 Chronic obstructive pulmonary disease, unspecified; E78.5 Hyperlipidemia, unspecified; I10 Essential (primary) hypertension; W05.0XXA Fall from non-moving wheelchair, initial encounter; Z79.82 Long term (current) use of aspirin; Z87.891 Personal history of nicotine dependence
CPT/HCPCS: 73030; 73060; 99283

== ENCOUNTER → 2024-05-19 12:45 | Outpatient (BNVA) | payer MEDICARE, OTHER, SELFPAY | PROVIDERS: PCP Family Medicine; Visit Provider Podiatrist Foot & Ankle Surgery | DX: I73.9 Peripheral vascular disease, unspecified (principal); L60.3 Nail dystrophy; L84 Corns and callosities; R09.89 Other specified symptoms and signs involving the circulatory and respiratory systems | CPT/HCPCS: 11055; 11721 ==

== ENCOUNTER → 2024-05-20 13:21 | Outpatient (BNVA) | payer MEDICARE, OTHER, SELFPAY | PROVIDERS: PCP Family Medicine; Visit Provider Orthopaedic Surgery | DX: S46.912A Strain of unspecified muscle, fascia and tendon at shoulder and upper arm level, left arm, initial encounter (principal); X58.XXXA Exposure to other specified factors, initial encounter | CPT/HCPCS: 73030; 99203 ==

== ENCOUNTER → 2024-05-26 09:48 | Outpatient (BNVA) | payer MEDICARE, OTHER, SELFPAY | PROVIDERS: PCP Family Medicine; Visit Provider Internal Medicine Cardiovascular Disease | DX: I25.10 Atherosclerotic heart disease of native coronary artery without angina pectoris (principal); I48.11 Longstanding persistent atrial fibrillation; Z79.82 Long term (current) use of aspirin; I49.8 Other specified cardiac arrhythmias; E78.2 Mixed hyperlipidemia; I10 Essential (primary) hypertension; R06.02 Shortness of breath; Z95.1 Presence of aortocoronary bypass graft; Z87.891 Personal history of nicotine dependence | CPT/HCPCS: 99214 ==

== ENCOUNTER 2024-07-19 22:34 | Emergency (ER) | payer MEDICARE, OTHER, SELFPAY ==
[2024-07-19 22:43] VITALS: BP 122/69; PULSE 69; RESP 16; TEMP 36.6; O2SAT 96; BMI 39.9
--- NOTE | 2024-07-19 22:49 | ECG_ITS ---
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 Measurements Intervals [place] Rate: 68 P: 54 ID: [id number] QRS: 56 QRSD: 158 T: 19 QT: 394 QTc: 420 Interpretive Statements SINUS RHYTHM WITH FIRST DEGREE AV BLOCK RIGHT BUNDLE BRANCH BLOCK [120+ ms QRS DURATION, UPRIGHT V1, 40+ ms S IN I/aVL/V4/V5/V6] Compared to ECG 04/24/2024 22:50:08 First degree AV block now present Ventricular premature complex(es) no longer present Electronically Signed On 07-20-2024 11:34:48 CDT by Christofer Summers M.D. [email or web address]
[2024-07-20 00:44] LABS: Hematocrit 40.1 % (37-53); Lymphocytes # 2.3 10^3/uL (0.8-4.8); Lymphocytes % 32.1 %; Mean Corpuscular HGB Conc 32.7 g/dL (30-55); Mean Corpuscular Hemoglobin 31.3 pg (27-33); Mean Corpuscular Volume 95.9 fl (82-101); Mean Platelet Volume 9.8 fL (7.4-10.4); Monocytes # 0.9 10^3/uL (0.2-0.9); Monocytes % 12.1 %; Neutrophils # 4.02 10^3/uL (1.8-7.7); Neutrophils % 55.5 %; Nucleated Red Blood Cells % 0 %; Platelet Count 177 10^3/cmm (157-399); Red Blood Count 4.18 10^6/uL (3.85-5.65); Red Cell Distribution Width 13.4 % (12.1-15.1); White Blood Count 7.25 10^3/uL (3.29-11.43)
[2024-07-20 00:49] VITALS: BP 157/68; PULSE 64; RESP 19; O2SAT 96
[2024-07-20 00:57] LABS: Bilirubin Urine Negative (Negative); Blood Urine Negative (Negative); Glucose Urine UA Negative (Normal); Ketones Urine Negative (Negative); Leukocyte Esterase Urine Negative (Negative); Nitrate Urine Negative (Negative); Protein Urine Negative (Negative); Specific Gravity, Urine 1.011 (1.005-1.030); Urine Appearance Clear (CLEAR); Urine Color Yellow (Yellow); Urobilinogen Urine 0.2 mg/dL (Negative); pH Urine 5.5 (5-7)
[2024-07-20 01:01] LABS: Alanine Aminotransferase 17 U/L (0-41); Albumin Level 4.1 g/dL (3.5-5.2); Alkaline Phosphatase 119 U/L (40-130); Aspartate Amino Transferase 21 U/L (0-40); Blood Urea Nitrogen 10 mg/dL (8-23); Calcium 9.6 mg/dL (8.5-10.5); Carbon Dioxide 29 mmol/L (22-29); Chloride 96 mmol/L (98-107); Creatinine Clr Calc Pharmacy 85.0313; Globulin 3.5 g/dL (1.3-4.6); Glucose 105 mg/dL (65-115); Osmolality Calculated 283 mOsm/kg (285-295); Sodium 137 mmol/L (136-145); Total Bilirubin 0.3 mg/dL (0.15-1.2); Total Protein 7.6 g/dL (6.6-8.7)
[2024-07-20 01:02] LABS: Add Urine Microscopic? YES; Bacteria Urine None Seen /hpf; RBC Urine 0-2 /hpf (0-2); Squamous Epithelial Cell Urine 0-5 /hpf (0-5); WBC Urine 0-5 /hpf (0-5)
--- NOTE | 2024-07-20 01:08 | XRR_ITS ---
PROCEDURE INFORMATION: Exam: XR Chest Exam date and time: 07/20/2024 1:13 AM Age: 84 years old Clinical indication: Other: Weakness; Prior surgery; Surgery date: 6+ months; Surgery type: Cabg TECHNIQUE: Imaging protocol: Radiologic exam of the chest. Views: 1 view. COMPARISON: CR XR chest 1V portable [id number] 04/24/2024 11:08 PM FINDINGS: Lungs: Mild bibasilar atelectasis. No focal consolidation to suggest overlying pneumonia. Pleural spaces: No large pleural effusion. No distinct pneumothorax. Heart/Mediastinum: Cardiomediastinal silhouette is midline and stable in size. Bones/joints: Postsurgical changes of prior median sternotomy. XR/XR chest 1V portable [id number] IMPRESSION: No acute cardiopulmonary findings.
[2024-07-20] MEDS: meclizine 25 mg tablet 50 MG PO (01:31)
[2024-07-20] MEDS: sodium chloride 0.9% 500 ML 999 ML IV (01:33)
[2024-07-20 01:49] LABS: Troponin(5th) Baseline 35 ng/L (0-15)
[2024-07-20 02:00] VITALS: BP 158/78; PULSE 63; RESP 18; O2SAT 95
[2024-07-20 02:58] LABS: Troponin 5 2HR 22.75 ng/L (0-15)
[2024-07-20 03:00] VITALS: BP 143/72; PULSE 65; RESP 15; O2SAT 93
[2024-07-20 03:02] LABS: Troponin 5 2HR Delta -12.25 ABS# (0-10)
[2024-07-20 03:33] VITALS: BP 153/69; BP 162/90; BP 171/96; PULSE 65; PULSE 68; PULSE 69
--- NOTE | 2024-07-20 03:50 | ECG_ITS ---
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 Measurements Intervals [place] Rate: 66 P: 61 VA: 227 QRS: 62 QRSD: 154 T: 43 QT: 407 QTc: 429 Interpretive Statements SINUS RHYTHM WITH FIRST DEGREE AV BLOCK RIGHT BUNDLE BRANCH BLOCK [120+ ms QRS DURATION, UPRIGHT V1, 40+ ms S IN I/aVL/V4/V5/V6] Compared to ECG 07/19/2024 22:52:36 No significant changes Electronically Signed On 07-20-2024 11:34:20 CDT by Christofer Summers M.D. [email or web address]
[2024-07-20 04:00] VITALS: BP 164/77; PULSE 65; O2SAT 98
--- NOTE | 2024-07-20 04:28 | PC.NURSE ---
Pt refused valium, states it makes him real mean.
--- NOTE | 2024-07-20 04:37 | W.ED.WEAKNES ---
HPI - Weakness General: Chief complaint: Weakness Stated complaint: general weakness, dizzy Time Seen by Provider: 07/20/24 00:38 History of Present Illness: Patient is a generally well-appearing 84-year-old male from home seen for dizziness and nausea which come on with rapid head motion. Additionally, he also feels lightheaded when he stands up from a seated position and feels that he might pass out. He notes that he has chronic sinus issues and pressure in the sinuses and ears. He he has not taken anything for his dizziness. There have been no medication changes recently. He does take Lasix and admits that he has not been drinking as much since his nausea has increased with the dizziness. He denies chest pain, shortness of breath, visual disturbance, and has no other acute complaints. PFS ED PFSH: Medical History Hx of blood clots Hypertension Hyperlipidemia Asthma COPD (chronic obstructive pulmonary disease) ASHD (arteriosclerotic heart disease) Patient is known to have coronary artery disease and coronary artery bypass surgery. Atrial fibrillation Patient is known to have easy bruising and bleeding. So he is not able to take the oral anticoagulation. He has been taking the aspirin. Carpal tunnel syndrome Dermatitis Surgical History Hx of bilateral cataract extraction Hx of tonsillectomy H/O hernia repair Hx of CABG History of removal of cyst Family History Father CAD (coronary artery disease) Cancer Grandfather Lung disease Cancer Mother Lung disease Denies family history of Diabetes Clotting disorder Dementia Chronic kidney disease (CKD) Suicide Anesthesia complication Bleeding disorder Stroke Social History Smoking and tobacco/nicotine status: former use of tobacco/nicotine Quit status (tobacco/nicotine): has quit using Year quit tobacco: 1974 Former quit date comment: 1 ppd X 11 years, now uses smokeless Alcohol intake: never Substance/Drug Use: never Physical Exam Const: COMMON NORMALS: no acute distress, patient oriented x3 and alert HENMT: COMMON NORMALS: normocephalic and atraumatic HEAD & SCALP: normocephalic and atraumatic Eye: COMMON NORMALS: Equal, round and reactive pupils present, EOMs intact bilaterally and no scleral icterus PUPIL: Yes Equal, round and reactive pupils present Resp: COMMON NORMALS: normal respiratory effort and No retractions Cardio: COMMON NORMALS: regular rate, regular rhythm and No murmurs present (Cardio) RATE: regular rate RHYTHM: regular rhythm GI: COMMON NORMALS: Normal to inspection, nondistended, normoactive bowel sounds present, Soft to palpation and non-tender PALPATION: Yes Soft to palpation Neuro: COMMON NORMALS: patient oriented x3 SENSORIUM/ORIENTATION: Yes alert OTHER: Vertiginous symptoms are easily reproducible with rapid motion of the head and fatigue quickly when he slows or stops moving and closes his eyes. The orthostatic vital signs were not measured to be significant, he did have a component of lightheadedness when he stood but was able to walk to the bathroom and back to his room without difficulty. Skin: COMMON NORMALS: no rashes or lesions noted GENERAL SKIN EXAM: no rashes or lesions noted Course Vital Signs: Vital signs: Vital Signs Temperature 98 F 07/19/24 22:43 Pulse Rate 61 07/20/24 05:02 Respiratory Rate 15 07/20/24 03:00 Blood Pressure 166/88 07/20/24 05:02 Pulse Oximetry 97 07/20/24 05:02 Oxygen Delivery Me thod Room Air 07/20/24 00:49 MDM - Weakness Medical Decision Making In summary, patient is a generally well-appearing 84-year-old male who appears to have both a component of BPPV contributing to dizziness and nausea which is in turn causing a hypovolemic state in the face of Lasix usage such that he gets near syncopal when he stands up. After receiving oral fluids and 500 mL of IV normal saline, he is now able to get up and walk to the bathroom and back without much difficulty. He continues to have vertiginous symptoms despite meclizine. He was offered Valium but he states that last time he took Valium he got mad. And does not want to take it again. As such, he will be given a course of meclizine and discharged in stable and improved condition with instructions to get up very carefully when going from a seated to standing position. We discussed that BPPV typically gets better regardless of the treatment modality. I do not suspect bacterial etiology to his sinus pressure such that antibiotics would be helpful for him. He will be discharged in stable condition Lab Data 07/20/24 00:35 07/20/24 00:35 Radiology Impressions Chest X-Ray 07/20/24 01:08 IMPRESSION: No acute cardiopulmonary findings. Laboratory Results WBC 7.25 10^3/uL (3.29-11.43) 07/20/24 00:35 RBC 4.18 10^6/uL (3.85-5.65) 07/20/24 00:35 Hgb 13.10 g/dL (11.27-16.99) 07/20/24 00:35 Hct 40.1 % (37-53) 07/20/24 00:35 MCV 95.9 fl (82-101) 07/20/24 00:35 MCH 31.3 pg (27-33) 07/20/24 00:35 MCHC 32.7 g/dL (30-55) 07/20/24 00:35 RDW 13.4 % (12.1-15.1) 07/20/24 00:35 Plt Count 177 10^3/cmm (157-399) 07/20/24 00:35 MPV 9.8 fL (7.4-10.4) 07/20/24 00:35 Neut % (Auto) 55.5 % 07/20/24 00:35 Lymph % (Auto) 32.1 % 07/20/24 00:35 [place] % (Auto) 12.1 % 07/20/24 00:35 Eos % (Auto) 0.0 % 07/20/24 00:35 Baso % (Auto) 0.0 % 07/20/24 00:35 Neut # (Auto) 4.02 10^3/uL (1.8-7.7) 07/20/24 00:35 Lymph # (Auto) 2.3 10^3/uL (0.8-4.8) 07/20/24 00:35 [place] # (Auto) 0.9 10^3/uL (0.2-0.9) 07/20/24 00:35 Eos # (Auto) 0.0 10^3/uL (0.0-0.8) 07/20/24 00:35 Baso # (Auto) 0.0 10^3/uL (0.0-0.1) 07/20/24 00:35 Nucleated RBC % (auto) 0 % 07/20/24 00:35 Nucleated RBCs # 0.0 /100WBC 07/20/24 00:35 Sodium 137 mmol/L (136-145) 07/20/24 00:35 Potassium 4.0 mmol/L (3.5-5.1) 07/20/24 00:35 Chloride 96 mmol/L (98-107) L 07/20/24 00:35 Carbon Dioxide 29 mmol/L (22-29) 07/20/24 00:35 Anion Gap 16.0 (5-19) 07/20/24 00:35 BUN 10 mg/dL (8-23) 07/20/24 00:35 Creatinine 0.8 mg/dL (0.7-1.2) 07/20/24 00:35 GFR Calculation Not Reportable 07/20/24 00:35 Glucose 105 mg/dL (65-115) 07/20/24 00:35 Calculated Osmolality 283 mOsm/kg (285-295) L 07/20/24 00:35 Calcium 9.6 mg/dL (8.5-10.5) 07/20/24 00:35 Total Bilirubin 0.3 mg/dL (0.15-1.2) 07/20/24 00:35 AST 21 U/L (0-40) 07/20/24 00:35 ALT 17 U/L (0-41) 07/20/24 00:35 Alkaline Phosphatase 119 U/L (40-130) 07/20/24 00:35 Troponin T Baseline 35 ng/L (0-15) H 07/20/24 00:35 Troponin T 120 Minute 22.75 ng/L (0-15) H 07/20/24 02:28 Delta Troponin T -12.25 ABS# (0-10) L 07/20/24 02:28 Total Protein 7.6 g/dL (6.6-8.7) 07/20/24 00:35 Albumin 4.1 g/dL (3.5-5.2) 07/20/24 00:35 Globulin 3.5 g/dL (1.3-4.6) 07/20/24 00:35 Urine Color Yellow (Yellow) 07/20/24 00:45 Urine Appearance Clear (CLEAR) 07/20/24 00:45 Urine pH 5.5 (5-7) 07/20/24 00:45 Ur Specific [place] 1.011 (1.005-1.030) 07/20/24 00:45 Urine Protein Negative (Negative) 07/20/24 00:45 Urine Glucose (UA) Negative (Normal) 07/20/24 00:45 Urine Ketones Negative (Negative) 07/20/24 00:45 Urine Blood Negative (Negative) 07/20/24 00:45 Urine Nitrate Negative (Negative) 07/20/24 00:45 Urine Bilirubin Negative (Negative) 07/20/24 00:45 Urine Urobilinogen 0.2 mg/dL (Negative) 07/20/24 00:45 Ur Leukocyte Esterase Negative (Negative) 07/20/24 00:45 Urine RBC 0-2 /hpf (0-2) 07/20/24 00:45 Urine WBC 0-5 /hpf (0-5) 07/20/24 00:45 Ur Squamous Epith Cells 0-5 /hpf (0-5) 07/20/24 00:45 Amorphous Sediment Not Reportable 07/20/24 00:45 Urine Bacteria None seen /hpf (NONE) 07/20/24 00:45 Hyaline Casts 0.40 /lpf 07/20/24 00:45 No radiology studies performed this visit Discharge Plan Discharge Patient Disposition: Home Clinical Impression: Benign paroxysmal positional vertigo, Orthostasis Condition: Stable Prescriptions: New meclizine 50 mg tablet 50 mg PO BID PRN (Reason: dizziness) Qty: 30 0RF No Action montelukast [Singulair] 10 mg tablet 10 mg PO DAILY saw palmetto 450 mg capsule 450 mg PO BID aspirin 325 mg tablet,delayed release (DR/EC) 325 mg PO DAILY atorvastatin 40 mg tablet 40 mg PO DAILY loratadine 10 mg tablet 10 mg PO DAILY omeprazole 20 mg tablet,delayed release (DR/EC) 40 mg PO DAILY venlafaxine 150 mg tablet extended release 24hr 150 mg PO DAILY Rx Instructions: TAKES IN THE PM, takes with 75mg furosemide 40 mg tablet 80 mg PO DAILY levothyroxine [Euthyrox] 88 mcg tablet 88 mcg PO DAILY Fasenra Pen 30 mg/mL auto-injector 30 mg SUBCUT Q28D Qty: 1 2RF Rx Instructions: 1 ml SQ q 4 weeks X 3 doses, then 1 ml q 8 weeks thereafter Fasenra Pen 30 mg/mL auto-injector 30 mg SUBCUT .q 8 weeks Qty: 1 5RF Rx Instructions: Maintenance dose Trelegy Ellipta 200-62.5-25 mcg blister with device inhalation alprazolam 0.25 mg tablet PO magnesium L-lactate [Magtab] 84 mg tablet extended release 84 mg PO BID 30 Days Qty: 60 5RF prednisone 10 mg tablet 5 mg PO DAILY Rx Instructions: 40 mg X 5 days / 30 mg x 5 days/ 20 mg x 5 days / 10 mg x 5 days/ 5 mg x 90 tizanidine 4 mg capsule 4 mg PO BID PRN (Reason: muscle spasticity) Qty: 60 0RF nitroglycerin [Nitrostat] 0.4 mg tablet, sublingual 0.4 mg SUBLINGUAL Q5M PRN (Reason: chest pain) Qty: 30 3RF metoprolol tartrate 50 mg tablet See Rx Instructions .ROUTE .COMPLEX Qty: 180 3RF Dose Instruction: Take 1 tablet by mouth twice daily Rx Instructions: Take 1 tablet by mouth twice daily albuterol sulfate 90 mcg/actuation HFA aerosol inhaler 2 inh INHALATION Q4H PRN (Reason: shortness of breath or wheezing) Qty: 18 0RF albuterol sulfate 2.5 mg /3 mL (0.083 %) solution for nebulization 2.5 mg INHALATION Q6H PRN (Reason: shortness of breath or wheezing) Qty: 90 0RF venlafaxine 75 mg capsule,extended release 24hr 75 mg PO .hs Discharge Orders: Discharge ED (Routine); Ordered 07/20/24 Ordered By: Gomez Billingsley Referrals: Yonas Shah MD [Primary Care Provider, Family Practice] Discharge Diet: Advance as tolerated Discharge Activity: Increase activity as tolerated Patient Instructions: Benign Paroxysmal Positional Vertigo (ED), Lightheadedness (ED), Pain Management Activity Restrictions/Additional Instructions: Please take the prescribed meclizine to help with the nausea and dizziness you feel when you move your head. This should help you drink a little bit more water which will help with the lightheadedness you feel when you stand up. The remainder of your tests are reassuring with no evidence of heart, lung, or bladder involvement requiring further workup or hospitalization. Print Language: Colombian Coding Level of Care Code ED Heel Caser for Chg Fwd Related Data Home Medications ?Medication ?Instructions ?Recorded ?Confirmed aspirin 325 mg tablet,delayed 325 mg PO DAILY 06/01/19 05/20/24 release atorvastatin 40 mg tablet 40 mg PO DAILY 06/01/19 05/20/24 loratadine 10 mg tablet 10 mg PO DAILY 06/01/19 05/20/24 montelukast 10 mg tablet 10 mg PO DAILY 06/01/19 05/20/24 (Singulair) omeprazole 20 mg tablet,delayed 40 mg PO DAILY 06/01/19 05/20/24 release saw palmetto 450 mg capsule 450 mg PO BID 06/01/19 05/20/24 venlafaxine 150 mg tablet,extended 150 mg PO DAILY 06/01/19 05/20/24 release 24 hr furosemide 40 mg tablet 80 mg PO DAILY 11/09/20 05/20/24 levothyroxine 88 mcg tablet 88 mcg PO DAILY 05/09/21 05/20/24 (Euthyrox) venlafaxine 75 mg capsule,extended 75 mg PO .hs 05/09/21 05/20/24 release 24 hr prednisone 10 mg tablet 5 mg PO DAILY 03/09/24 05/20/24 alprazolam 0.25 mg tablet mg PO 05/26/24 fluticasone fur. 200 mcg-umeclid inhalation 05/26/24 62.5 mcg-vilant 25 mcg inhalat.powder (Trelegy Ellipta) Previous Rx's ?Medication ?Instructions ?Recorded nitroglycerin 0.4 mg sublingual 0.4 mg sublingual Q5M PRN chest 08/09/19 tablet (Nitrostat) pain #30 tabs albuterol sulfate 2.5 mg/3 mL 2.5 mg (3 mL) inhalation Q6H PRN 12/13/19 (0.083 %) solution for nebulization shortness of breath or wheezing #90 mL albuterol sulfate 90 mcg/actuation 2 inh inhalation Q4H PRN shortness 12/13/19 aerosol inhaler of breath or wheezing #18 grams benralizumab 30 mg/mL subcutaneous 30 mg SUBCUT .q 8 weeks #1 mL 10/17/23 auto-injector (Fasenra Pen) benralizumab 30 mg/mL subcutaneous 30 mg SUBCUT Q28D Loading Dose 3 10/17/23 auto-injector (Fasenra Pen) doses #1 mL tizanidine 4 mg capsule 4 mg PO BID PRN muscle spasticity 03/23/24 #60 caps magnesium L-lactate 84 mg 84 mg PO BID 30 days #60 tabs 05/26/24 tablet,extended release (Magtab) metoprolol tartrate 50 mg tablet See Rx Instructions .Route 06/29/24 .COMPLEX #180 tabs meclizine 50 mg tablet 50 mg PO BID PRN dizziness #30 tabs 07/20/24 Allergies Allergy/AdvReac Type Severity Reaction Status Date / Time doxycycline Allergy Unknown unknown Verified 07/19/24 22:50 hydromorphone (From Dilaudid) Allergy Unknown unknown Verified 07/19/24 22:50 Iodinated Contrast Media Allergy Unknown unknown Verified 07/19/24 22:50 levofloxacin (From Levaquin) Allergy Unknown unknown Verified 07/19/24 22:50 lisinopril Allergy Unknown unknown Verified 07/19/24 22:50 Sulfa (Sulfonamide Allergy Unknown unknown Verified 07/19/24 22:50 Antibiotics)
[2024-07-20 05:02] VITALS: BP 166/88; PULSE 61; O2SAT 97
== END 2024-07-20 05:00 | disposition home or self-care (01) ==
PROVIDERS: Emergency Provider Student in an Organized Health Care Education/Training Program; PCP Family Medicine
DX: H81.10 Benign paroxysmal vertigo, unspecified ear (principal); I95.1 Orthostatic hypotension; Z79.82 Long term (current) use of aspirin; Z87.891 Personal history of nicotine dependence; J44.9 Chronic obstructive pulmonary disease, unspecified; E78.5 Hyperlipidemia, unspecified; I10 Essential (primary) hypertension
CPT/HCPCS: 36415; 71045; 80053; 81001; 84484; 85025; 93005; 96360; 99285; J7040; J8597

== ENCOUNTER → 2024-08-04 12:51 | Outpatient (BNVA) | payer MEDICARE, OTHER, SELFPAY | PROVIDERS: PCP Family Medicine; Visit Provider Podiatrist Foot & Ankle Surgery | DX: I73.9 Peripheral vascular disease, unspecified (principal); L60.3 Nail dystrophy; L84 Corns and callosities | CPT/HCPCS: 11055; 11721 ==

== ENCOUNTER → 2024-09-28 11:24 | Outpatient (BNVA) | payer MEDICARE, OTHER, SELFPAY | PROVIDERS: PCP Family Medicine; Visit Provider Nurse Practitioner Family | DX: D36.12 Benign neoplasm of peripheral nerves and autonomic nervous system, upper limb, including shoulder (principal); L81.4 Other melanin hyperpigmentation; L57.8 Other skin changes due to chronic exposure to nonionizing radiation; D22.39 Melanocytic nevi of other parts of face; L82.1 Other seborrheic keratosis; Z08 Encounter for follow-up examination after completed treatment for malignant neoplasm; Z86.007 Personal history of in-situ neoplasm of skin; D48.5 Neoplasm of uncertain behavior of skin; L57.0 Actinic keratosis | CPT/HCPCS: 11102; 17000; 99213 ==

== ENCOUNTER → 2024-11-15 10:30 | Outpatient (BNVA) | payer MEDICARE, OTHER, SELFPAY | PROVIDERS: PCP Family Medicine; Visit Provider Internal Medicine | DX: J44.89 Other specified chronic obstructive pulmonary disease (principal); J30.2 Other seasonal allergic rhinitis; G47.36 Sleep related hypoventilation in conditions classified elsewhere; R91.1 Solitary pulmonary nodule; Z99.81 Dependence on supplemental oxygen; Z87.891 Personal history of nicotine dependence; J44.9 Chronic obstructive pulmonary disease, unspecified | CPT/HCPCS: 36415; 85025; 99214 ==

== ENCOUNTER → 2024-11-16 10:57 | Outpatient (BNVA) | payer MEDICARE, OTHER, SELFPAY | PROVIDERS: PCP Family Medicine; Visit Provider Podiatrist Foot & Ankle Surgery | DX: I73.9 Peripheral vascular disease, unspecified (principal); L60.3 Nail dystrophy; L84 Corns and callosities | CPT/HCPCS: 11055; 11721 ==

== ENCOUNTER → 2024-12-20 10:44 | Outpatient (BNVA) | payer MEDICARE, OTHER, SELFPAY | PROVIDERS: PCP Family Medicine; Visit Provider Internal Medicine | DX: J44.89 Other specified chronic obstructive pulmonary disease (principal); J30.2 Other seasonal allergic rhinitis; G47.33 Obstructive sleep apnea (adult) (pediatric); Z99.89 Dependence on other enabling machines and devices; R91.1 Solitary pulmonary nodule; Z87.891 Personal history of nicotine dependence; J44.9 Chronic obstructive pulmonary disease, unspecified | CPT/HCPCS: 99214; Q3014 ==

== ENCOUNTER 2024-12-28 13:25 | Outpatient (CLI) | payer OTHER, MEDICARE, SELFPAY ==
--- NOTE | 2024-12-28 13:45 | CTR_ITS ---
PROCEDURE INFORMATION: Exam: CT Chest Without Contrast; Diagnostic Exam date and time: 12/28/2024 1:43 PM Age: 84 years old Clinical indication: Condition or disease; Lung condition and disease; Pulmonary nodule, solitary; Prior surgery; Surgery date: 6+ months; Surgery type: Heart; Additional info: Lung nodules TECHNIQUE: Imaging protocol: Diagnostic computed tomography of the chest without contrast. Radiation optimization: All CT scans at this facility use at least one of these dose optimization techniques: automated exposure control; mA and/or kV adjustment per patient size (includes targeted exams where dose is matched to clinical indication); or iterative reconstruction. COMPARISON: [place] [id number] 08/05/2023 12:37 AM RADIATION DOSE METRICS: Total DLP (mGy-cm): 656.26 FINDINGS: Lungs: Interval right upper lobe anterior segment 8.4 mm nodule. Additional 2.6 mm noncalcified nodule same segment (previously present, stable). 3.7 mm noncalcified nodule right upper lobe posterior segment, stable. 3 mm and 3.3 mm noncalcified nodules right lower lobe, stable. Scarring left upper lobe anterior segment, stable. Subsegmental atelectasis posterior bilateral upper lobe posterior segment, right lower lobe superior segment. Pleural spaces: No pneumothorax. No pleural effusion. Heart: No cardiomegaly. No pericardial effusion. Coronary arteries: Left main, LAD, LCx and RCA calcified coronary atherosclerosis. Lymph nodes: No enlarged lymph nodes. Vasculature: Moderate aortic arch, branch, and descending thoracic aortic atherosclerotic calcification without ectasia. Gallbladder and biliary ducts: Several dependent small gallstones are noted posteriorly in the nondistended gallbladder. No gallbladder wall thickening or pericholecystic fluid identified. Pancreas: Severe pancreatic atrophy. Bones/joints: The patient is status post median sternotomy with sternal cerclage wires. Thoracic spine vertebral body marginal osteophytes are noted at multiple levels. Soft tissues: Unremarkable. CT/CT chest wo con [id number] IMPRESSION: 1. New right upper lobe noncalcified nodule. Three-month followup chest CT, PET/CT, or percutaneous needle biopsy recommended (Nathen et al., Fleischner Society, 2017). 2. Stable additional noncalcified pulmonary nodules. 3. Coronary atherosclerosis. 4. Cholelithiasis.
== END 2024-12-28 13:26 | disposition home or self-care (01) ==
LOC: RAD 13:28
PROVIDERS: PCP Family Medicine; Visit Provider Internal Medicine
DX: J44.9 Chronic obstructive pulmonary disease, unspecified (principal); R91.8 Other nonspecific abnormal finding of lung field; I25.10 Atherosclerotic heart disease of native coronary artery without angina pectoris; K80.20 Calculus of gallbladder without cholecystitis without obstruction
CPT/HCPCS: 71250

== ENCOUNTER → 2025-01-03 09:56 | Outpatient (BNVA) | payer MEDICARE, OTHER, SELFPAY | PROVIDERS: PCP Family Medicine; Visit Provider Nurse Practitioner Family | DX: I25.10 Atherosclerotic heart disease of native coronary artery without angina pectoris (principal); Z95.1 Presence of aortocoronary bypass graft; I10 Essential (primary) hypertension; R60.9 Edema, unspecified; Z72.0 Tobacco use | CPT/HCPCS: 99213 ==

== ENCOUNTER → 2025-01-10 11:17 | Outpatient (BNVA) | payer MEDICARE, OTHER, SELFPAY | PROVIDERS: PCP Family Medicine; Visit Provider Internal Medicine | DX: J44.89 Other specified chronic obstructive pulmonary disease (principal); J30.9 Allergic rhinitis, unspecified; G47.33 Obstructive sleep apnea (adult) (pediatric); Z99.89 Dependence on other enabling machines and devices; R91.1 Solitary pulmonary nodule; G47.36 Sleep related hypoventilation in conditions classified elsewhere; F17.290 Nicotine dependence, other tobacco product, uncomplicated | CPT/HCPCS: 99214; Q3014 ==

== ENCOUNTER → 2025-02-08 13:57 | Outpatient (BNVA) | payer MEDICARE, OTHER, SELFPAY | PROVIDERS: PCP Family Medicine; Visit Provider Podiatrist Foot & Ankle Surgery | DX: E11.8 Type 2 diabetes mellitus with unspecified complications (principal); L60.3 Nail dystrophy; L84 Corns and callosities; I73.9 Peripheral vascular disease, unspecified | CPT/HCPCS: 11055; 11721 ==